=== PATIENT | male | born 1965 | race Caucasian/White ===

== ENCOUNTER 2024-03-09 11:37 | Outpatient (CLI) | payer BC, SELFPAY | END 2024-03-09 11:38 | disposition home or self-care (01) | LOC: AMB 03-13 19:12 | PROVIDERS: Visit Provider Internal Medicine | DX: R42 Dizziness and giddiness (principal) | CPT/HCPCS: A0425; A0427 ==

== ENCOUNTER 2024-03-09 12:09 | Inpatient (IN) | payer BC, SELFPAY ==
[2024-03-09] VITALS (13 sets, daily range): BP systolic 143–164; BP diastolic 91–105; PULSE 95–111; RESP 28–40; TEMP 37.6–39.3; O2SAT 90–93; BMI 37.0; BMI 36.6
--- NOTE | 2024-03-09 12:34 | CT_ITS ---
Patient: WILD PITTMAN Facility:?[facility] Patient ID:?[id number] Site Patient ID:?[id number]. Site :?[id number] Study:?CT-Head w/o-03/09/2024 12:53:55 PM Ordering Physician:Marvin Garcia Final Report: Indication: Dizziness and fever Technique: Volumetric multidetector CT images of the head were obtained without the administration of low osmolar intravenous contrast. Comparison: None available Findings: There is no intra-axial or extra-axial fluid collection. There is no mass effect or midline shift. The ventricles and sulci are normal in size and position for age. The brain parenchyma is grossly preserved in attenuation and gaitan-white differentiation. The orbits and their contents are grossly within normal limits. The bony calvarium is grossly intact. The paranasal sinuses are clear. The mastoid air cells are well aerated. Impression: No acute intracranial abnormality. Please note that all CT scans at this facility use dose modulation, iterative reconstruction, and/or weight-based dosing when appropriate to reduce radiation dose to as low as reasonably achievable. Dictated by Rogelio Wilkinson MD @ 03/09/2024 1:07:08 PM Signed by:?Rogelio Wilkinson MD @03/09/2024 1:07:08 PM (Electronic Signature)
--- NOTE | 2024-03-09 12:41 | ED_ITS ---
HPI - Weakness General Chief complaint: Fever Stated complaint: Dizzy Time Seen by Provider: 03/09/24 12:17 History of Present Illness HPI Narrative: Patient is a a 58-year-old gentleman who was sent over from the urgent care today as he has been sick with dizziness general malaise is fatigue for 2 days. He has not really had any vomiting his cough is nonproductive. His CBC in urgent care which was largely unremarkable. He does have a blood sugar of 351 which he states is not news for him as he is a known diabetic. He has a sodium of 123 with an anion gap of 13. Upon arrival in the emergency room he is noted to be tachycardic and febrile. His respirations are 40 on measurement but much less on my assessment. Patient has no other localizable symptoms his cough is again minimal he has no neurologic symptoms no abdominal pain no rash no skin breakdown. Related Data Home Medications Medication Instructions Recorded Confirmed metoprolol tartrate 50 mg tablet 50 mg PO BID 03/09/24 03/09/24 rosuvastatin 40 mg tablet 40 mg PO DAILY 03/09/24 03/09/24 Allergies Allergy/AdvReac Type Severity Reaction Status Date / Time No Known Drug Allergies Allergy Verified 03/09/24 13:52 Review of Systems Status of ROS: Reports: 10 or more systems reviewed and unremarkable except as noted in History and below PFSH [facility] Medical History Myocardial infarction ?I21.9 - Acute myocardial infarction, unspecified (ICD-10) Surgical History H/O heart artery stent ?Z95.5 - Presence of coronary angioplasty implant and graft (ICD-10) Social History Smoking Status: Current every day smoker What tobacco products do you use: cigarettes Second hand tobacco smoke exposure: No How often do you have a drink containing alcohol: never AUDIT-C Alcohol total score: 0 Non-prescribed substance use: denies use service: No Exam Narrative: Exam Narrative: EXAM GENERAL: Patient appears comfortable and well although his vital signs are all abnormal. EYES: No scleral icterus. LYMPH: No supraclavicular or cervical lymphadenopathy. SKIN: Visible skin seen during exam normal or with benign process only. EXT: No dependent lower extremity pedal edema. HEART: Regular rate and rhythm with no murmurs, rubs, or gallops. Tachycardia noted LUNGS: Rhonchi noted in the right base. ABD: Soft, non tender, non distended. PSYCH: Good eye contact, speech is not pressured. Const: Vital Signs, click to edit/add: Vital Signs - 24 hr 03/09/24 12:18 03/09/24 12:48 Temperature 102.7 F H 102.7 F H Pulse Rate [Pulse Oximeter] 109 H 104 H Respiratory Rate 40 H 36 H Blood Pressure [Le ft Arm] 146/105 H Blood Pressure [Le ft Upper Arm] 143/101 H Pulse Oximetry 90 91 Oxygen Delivery Me thod Room Air Room Air Course Course ED Course: Very concerned about this patient. He meets criteria for sepsis. Blood cultures have been collected will begin aggressive fluid hydration. I did review his laboratory workup at the urgent care and will obtain comprehensive metabolic panel blood cultures x2 lactate. Chest x-ray is suspicious for pneumonia on the left on my review. I will start with the Zosyn plus Zithromax. Vital Signs Vital signs: Initial Vital Signs Temperature 102.7 F H 03/09/24 12:18 Temperature Source Temporal Artery Scan 03/09/24 12:18 Pulse Rate 109 H 03/09/24 12:18 Pulse Rhythm Regular 03/09/24 12:18 Respiratory Rate 40 H 03/09/24 12:18 Blood Pressure 143/101 H 03/09/24 12:18 Blood Pressure Mean 115 H 03/09/24 12:18 Blood Pressure Position Supine 03/09/24 12:18 Pulse Oximetry 90 03/09/24 12:18 Oxygen Delivery Method Room Air 03/09/24 12:18 Vital Signs Temperature 102.7 F H 03/09/24 12:18 Pulse Rate 109 H 03/09/24 12:18 Respiratory Rate 40 H 03/09/24 12:18 Blood Pressure 143/101 H 03/09/24 12:18 Pulse Oximetry 90 03/09/24 12:18 Oxygen Delivery Method Room Air 03/09/24 12:18 Temperature 102.7 F H 03/09/24 12:48 Pulse Rate 104 H 03/09/24 12:48 Respiratory Rate 36 H 03/09/24 12:48 Blood Pressure 146/105 H 03/09/24 12:48 Pulse Oximetry 91 03/09/24 12:48 Oxygen Delivery Method Room Air 03/09/24 12:48 Medications Administered Medications: Discontinued Medications Generic Name Dose Route Start Last Admin Trade Name Freq PRN Reason Stop Dose Admin Sodium Chloride 1,000 mls @ 1,000 mls/hr 03/09/24 12:35 03/09/24 12:50 0.9 % Sodium Chloride 1000 Ml IV 03/09/24 13:34 1,000 mls/hr .Q1H TUNG Administration Piperacillin Sod/Tazobactam 100 mls @ 200 mls/hr 03/09/24 12:51 03/09/24 13:05 Sod 3.375 gm/ Sodium Chloride IVPB 03/09/24 12:52 200 mls/hr ONCE ONE Administration Azithromycin 500 mg/ Sodium 255 mls @ 255 mls/hr 03/09/24 12:51 03/09/24 12:59 Chloride IVPB 03/09/24 12:52 255 mls/hr ONCE ONE Administration MDM - Weakness MDM Narrative Medical decision making narrative: Patient is a 58-year-old gentleman who comes as a transfer from urgent care. He is noted to be hyponatremic and hyperglycemic. Upon arrival he has elevated blood pressure elevated pulse elevated respiratory rate and a fever 102.7. His normal oxygen saturation on room air. He was given hydration and repeat his electrolytes showing a sodium 122. His anion gap still normal. I did do a D- dimer which was positive and did review his chest x-ray from urgent care which I believe shows consolidation on the left. CT of the chest PE protocol shows pulmonary emboli as well as left-sided pneumonia. Upon arrival patient also been given Zosyn and Zithromax cultures have been collected. I have viral testing is negative. At this time patient is being admitted for acute pulmonary embolism after receiving Eliquis 10 mg. He is also admitted for and left-sided pneumonia hyponatremia and hyperglycemia. Lab Data Labs: Lab Results 03/09/24 Range/Units 12:40 D-Dimer Quant (PE/DVT) 2.43 H (0.00-0.50) ug/ml VBG pH 7.434 H (7.32-7.43) VBG pCO2 30 L (40-50) mmHG VBG pO2 35.5 (25-47) mmHG VBG HCO3 20 L (21-28) mmol/L Sodium 122 L* (135-149) mmol/L Potassium 4.3 (3.6-5.1) mmol/L Chloride 91 L (96-114) mmol/L Carbon Dioxide 21 (20-32) mmol/L Anion Gap 10 (7-15) mEq/L BUN 17 (7-30) mg/dL Creatinine 0.9 (0.5-1.5) mg/dL Estimated Creat Clear 95.29 Estimated GFR 99 ml/min Glucose 342 H (60-115) mg/dL Lactate 1.8 (0.5-1.9) mmol/L Calcium 9.1 (8.4-10.6) mg/dL Magnesium 1.8 (1.5-2.6) mg/dL Total Bilirubin 0.9 (0.1-1.5) mg/dL AST 40 H (12-35) U/L ALT 46 (4-50) U/L Alkaline Phosphatase 86 (40-150) U/L Troponin I 0.04 (0.01-0.04) ng/mL Total Protein 7.8 (6.0-8.3) g/dL Albumin 4.3 (3.3-5.0) g/dL SARS-CoV-2 (PCR) Negative SARS-CoV-2 (Negative) Influenza Type A (PCR) Negative PCR FLU A (Negative) Influenza Type B (PCR) Negative PCR FLU B (Negative) RSV (PCR) Negative PCR RSV (Negative) Discharge Plan Discharge Clinical Impression: Pulmonary embolism, Diabetes mellitus, Hyponatremia, Pneumonia Patient Disposition: Admitted As Observation Activity Level: Other Discharge Diet: Other Prescriptions: No Action rosuvastatin 40 mg tablet 40 mg PO DAILY metoprolol tartrate 50 mg tablet 50 mg PO BID Follow Up/Referrals: Provider,Not a Local [Primary Care Provider] -
[2024-03-09] MEDS: 0.9 % SODIUM CHLORIDE 1000 ml 1,000 ML IV (12:50)
[2024-03-09 12:52] LABS: Lactate* 1.8 mmol/L (0.5-1.9)
[2024-03-09] MEDS: AZITHROMYCIN 500 MG in 0.9 % SODIUM CHLORIDE 250 ml 250 ML 255 MG IVPB (12:59)
[2024-03-09] MEDS: PIPERACILLIN/TAZOBACTAM 3.375 GM in 0.9 % SODIUM CHLORIDE Mini-bag 100 ML IVPB ×2 (13:05→18:29)
[2024-03-09 13:11] LABS: Albumin* 4.3 g/dL (3.3-5.0)
[2024-03-09 13:12] LABS: Chloride* 91 mmol/L (96-114); Potassium* 4.3 mmol/L (3.6-5.1)
[2024-03-09 13:14] LABS: Anion Gap 10 mEq/L (7-15); Aspartate Amino Transferase* 40 U/L (12-35); Bilirubin Total* 0.9 mg/dL (0.1-1.5); Carbon Dioxide* 21 mmol/L (20-32); Creatinine* 0.9 mg/dL (0.5-1.5); Est. Creatinine Clearance* 95.29; Estimated Glomerular Filt Rate 99 ml/min
[2024-03-09 13:15] LABS: Alanine Aminotransferase* 46 U/L (4-50); Alkaline Phosphatase* 86 U/L (40-150); Blood Urea Nitrogen* 17 mg/dL (7-30); Calcium* 9.1 mg/dL (8.4-10.6); Glucose* 342 mg/dL (60-115); Total Protein* 7.8 g/dL (6.0-8.3)
[2024-03-09 13:16] LABS: D Dimer Quantitative* 2.43 ug/ml (0.00-0.50); Magnesium* 1.8 mg/dL (1.5-2.6)
[2024-03-09 13:26] LABS: Troponin I* 0.04 ng/mL (0.01-0.04)
[2024-03-09 13:29] LABS: Sodium* 122 mmol/L (135-149)
--- NOTE | 2024-03-09 13:29 | CT_ITS ---
Patient: WILD PITTMAN Facility:?[facility] Patient ID:?[id number] Site Patient ID:?[id number]. Site :?1965 Study:?CT-Chest PE 95CC ISOVUE 370-03/09/2024 1:54:49 PM Ordering Physician:?DR. GARCIA Final Report: Indication: ELEVATED D DIMER. FEVER COUGH Technique: CTA chest, pulmonary embolism protocol utilizing 95 mL Isovue 370 Comparison: None Findings: No thyroid nodules. There are a few prominent mediastinal and left hilar lymph nodes without pathologic enlargement, likely reactive. The heart is normal in size. There is no CT evidence of right heart strain. No pericardial effusion. Coronary artery calcification/stenting. The thoracic aorta and pulmonary artery are normal in caliber. Examination of the pulmonary arteries is limited secondary to contrast bolus timing. There are some arterial filling defects in the segmental arteries of the left lower lobe, concerning for small pulmonary emboli. Diffuse ground-glass opacification involving the left upper lobe with some small regions of more focal consolidation. Subpleural emphysematous changes involving the left upper lobe. No suspicious pulmonary nodules or masses. No pleural effusion or pneumothorax. The airways are clear. The visualized upper abdomen is without acute process. Large simple appearing cyst in the right kidney. The soft tissues and osseous structures are unremarkable. Impression: 1. Examination of the pulmonary arteries is limited secondary to contrast bolus timing. There are some pulmonary arterial filling defects in the segmental arteries of the left lower lobe, which may represent contrast mixing artifact; however, small pulmonary emboli can not be excluded. 2. Diffuse ground-glass opacification involving the left upper lobe with some small regions of more focal consolidation, concerning for an acute infectious/inflammatory process. Findings were discussed with Dr. Garcia by Dr. Roberson at 2:08 p.m. central standard time on 03/09/2024 Please note that all CT scans at this facility use dose modulation, iterative reconstruction, and/or weight-based dosing when appropriate to reduce radiation dose to as low as reasonably achievable. Dictated by Beck Roberson MD @ 03/09/2024 2:09:56 PM Signed by:?Beck Roberson MD @03/09/2024 2:09:56 PM (Electronic Signature)
[2024-03-09 13:38] LABS: PCR FLU A Negative PCR FLU A (Negative); PCR FLU B Negative PCR FLU B (Negative); PCR RSV Negative PCR RSV (Negative); SARS PCR* Negative SARS-CoV-2 (Negative)
[2024-03-09 14:00] LABS: PCO2 VBG 30 mmHG (40-50); PO2 VBG 35.5 mmHG (25-47); pH VBG 7.434 (7.32-7.43)
[2024-03-09 14:01] LABS: HCO3 VBG 20 mmol/L (21-28)
[2024-03-09 14:27] LABS: Procalcitonin* 2.77 ng/mL (<0.50)
[2024-03-09] MEDS: APIXABAN 5 MG TABLET 10 MG PO ×2 (14:45→23:02)
--- NOTE | 2024-03-09 15:08 | PM.IMHP1 ---
Hospitalist- H&P: HPI History of Present Illness Date Seen: 03/09/24 Chief complaint: Dizzy Narrative: Dominic Anthony is a 58 year old male who presented to the ER after being seen in the Urgent Care this morning for a two history of feeling poorly. Primary symptoms include dizziness and weakness. Associated symptoms include polyuria and polydipsia. He's not had any falls or presyncope, no GI symptoms but hasn't felt like eating much recently. No chest pain, no dyspnea, no orthopnea, no PND, no LE edema. He has a history of DM2, doesn't check his Blood Sugar at all; unsure what last A1C was. ER Course and Findings: - BG 342, no AG, no acidosis - Na 122 (126/128 corrected), normal renal function - VS reveal fever, tachycardia, tachypnea, hypertension, hypoxia. Patient notes that he does not feel any SOB with a RR in the 30-40 range - CTA of chest reveals possible small PEs in LLL, ground glass opacification in ENOCH concerning for acute infectious/inflammatory process - treated with IVFs and IV Zosyn - no acute findings on head CT Histories updated below. Had been seeing Dr. Hinson, but given his recent move, looking for a new PCP. He's interested in seeing Dr. Garcia for Primary Care after meeting him in the ER today. Review of Systems Status of ROS: Reports: 10 or more systems reviewed and unremarkable except as noted in History and below [facility] Medical History (Updated 03/09/24 @ 18:18 by Saba Dawson MD) Coronary artery disease ?I25.10 - Atherosclerotic heart disease of [place] coronary artery without angina pectoris (ICD-10) Hyperlipidemia ?E78.5 - Hyperlipidemia, unspecified (ICD-10) Essential hypertension ?I10 - Essential (primary) hypertension (ICD-10) Tobacco user ?Z72.0 - Tobacco use (ICD-10) Diabetes type 2, uncontrolled Myocardial infarction ?I21.9 - Acute myocardial infarction, unspecified (ICD-10) Surgical History (Updated 03/09/24 @ 17:17 by Saba Dawson MD) H/O heart artery stent ?Z95.5 - Presence of coronary angioplasty implant and graft (ICD-10) Social History (Updated 03/09/24 @ 18:15 by Saba Dawson MD) Narrative: Lives alone in [place], ex- Regina Anthony is local and would be MDM if needed. Requests DNR/DNI status. Smokes 1/2-3/4ppd, no ETOH use. 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 What is your current living situation?: I presently have a place to live Smoking Status: Current every day smoker What tobacco products do you use: cigarettes Second hand tobacco smoke exposure: No How often do you have a drink containing alcohol: never AUDIT-C Alcohol total score: 0 Non-prescribed substance use: denies use service: No Meds Home Medications and Allergies Home Medications Medication Instructions Recorded Confirmed Type metoprolol tartrate 50 mg tablet 50 mg PO BID 03/09/24 03/09/24 History rosuvastatin 40 mg tablet 40 mg PO DAILY 03/09/24 03/09/24 History Home Medication Comments: - states taking as prescribed - previously on Metformin, unsure when this was stopped Allergies Allergy/AdvReac Type Severity Reaction Status Date / Time No Known Drug Allergies Allergy Verified 03/09/24 13:52 Exam Narrative: Exam Narrative: GEN: Alert and answering questions appropriately HEENT: EOMIs bilaterally, no scleral icterus CV: Sinus tachycardia without concerning murmurs R: Decreased bibasilar breath sounds, L sided rhonchi, no wheezing. + tachypnea, feels like this is his baseline Ab: protuberant, no ttp Ext: wwp, no concerning edema Skin: No concerning skin lesions or rashes on exposed skin Neuro: No focal deficits, no resting tremor Psych: Flat affect, otherwise appropriate Const: Vital Signs, click to edit/add: Vital Signs - 24 hr 03/09/24 12:18 03/09/24 12:48 03/09/24 14:02 Temperature 102.7 F H 102.7 F H Pulse Rate 108 H Pulse Rate [Pulse Oximeter] 109 H 104 H Respiratory Rate 40 H 36 H 30 H Blood Pressure 145/91 H Blood Pressure [Le ft Arm] 146/105 H Blood Pressure [Le ft Upper Arm] 143/101 H Pulse Oximetry 90 91 92 Oxygen Delivery Me thod Room Air Room Air 03/09/24 14:31 Temperature Pulse Rate 111 H Pulse Rate [Pulse Oximeter] Respiratory Rate 32 H Blood Pressure 164/101 H Blood Pressure [Le ft Arm] Blood Pressure [Le ft Upper Arm] Pulse Oximetry 92 Oxygen Delivery Nm edith Hospitalist - H&P: Result Labs Labs: BMP 03/09/24 12:40 Sodium 122 L* Potassium 4.3 Chloride 91 L Carbon Dioxide 21 BUN 17 Creatinine 0.9 Glucose 342 H Calcium 9.1 Cardiac Enzymes 03/09/24 Range/Units 12:40 Troponin I 0.04 (0.01-0.04) ng/mL Liver Function 03/09/24 Range/Units 12:40 Total Bilirubin 0.9 (0.1-1.5) mg/dL AST 40 H (12-35) U/L ALT 46 (4-50) U/L Alkaline Phosphatase 86 (40-150) U/L Albumin 4.3 (3.3-5.0) g/dL Assessment and Plan Assessment and plan (1) Sepsis: Problem comment: - as evidenced by fever, HR 110s, RR 30-40s - reassuring lactate and WBC - pneumonia likely source, symptoms worsened by uncontrolled DM2 - blood cultures pending, will continue Zosyn (03/09) Status: Acute (2) Pneumonia: Problem comment: - ENOCH, Zosyn (03/09) Status: Acute (3) Hyponatremia: Problem comment: - admission sodium of 122 (corrected:126/128) - follow sodium, anticipate appropriate correction as he is rehydrated and has improved BG control - continue IVFs, deferring fluid restriction at this time Status: Acute (4) Pulmonary embolism: Problem comment: - likely PE on admission imaging - Eliquis initiated 03/09/24, ultrasound BLEs Status: Acute (5) Diabetes type 2, uncontrolled: Problem comment: - on Metformin previously, had this stopped by PCP in the past - A1C on admission 12.4 - Accuchecks, SSI, restart Metformin, Nutrition referral, close outpatient f/u Status: Acute (6) Tobacco user: Problem comment: - last cigarette on 03/06/24 (hasn't been smoking 2/2 illness) - defers nicotine replacement, understands recommendation to quit Status: Acute Plan - per above - Eliquis for ppx - offered to call and update , patient declined (he will let her know of hospital stay)
--- NOTE | 2024-03-09 15:57 | US_ITS ---
Patient: WILD PITTMAN Facility:?[facility] Patient ID:?[id number] Site Patient ID:?[id number] Site :?1965 Study:?US-Extremity bilateral LE Venous-03/09/2024 6:35:24 PM Ordering Physician:?Crystal Simmons Final Report: INDICATION: Possible PE, evaluate for DVT. TECHNIQUE: Ultrasound venous duplex bilateral lower extremity. Compression venous exam was performed using platt-scale, color Doppler, and spectral Doppler analysis. COMPARISON: None. FINDINGS: Deep veins: Sonographic imaging demonstrates the bilateral common femoral, deep femoral, superficial femoral, popliteal, peroneal, and posterior tibial veins to be fully compressible with normal color Doppler blood flow. Superficial veins: Greater saphenous veins are fully compressible. No popliteal cyst. IMPRESSION: No evidence of deep venous thrombosis within the evaluated veins of the bilateral lower extremities. Dictated by Kee Hess MD @ 03/09/2024 7:09:17 PM Signed by:?Kee Hess MD @03/09/2024 7:09:17 PM (Electronic Signature)
[2024-03-09 16:33] LABS: Hemoglobin A1C* 12.4 % (0-5.6)
[2024-03-09 16:59] LABS: HCO3 VBG 23 mmol/L (21-28); Lactate* 1.8 mmol/L (0.5-1.9); PCO2 VBG 36 mmHG (40-50); PO2 VBG 32.9 mmHG (25-47); pH VBG 7.411 (7.32-7.43)
[2024-03-09 17:35] LABS: Anion Gap 10 mEq/L (7-15); Blood Urea Nitrogen* 16 mg/dL (7-30); Carbon Dioxide* 23 mmol/L (20-32); Chloride* 91 mmol/L (96-114); Potassium* 4.1 mmol/L (3.6-5.1); Sodium* 124 mmol/L (135-149)
[2024-03-09 17:36] LABS: Calcium* 8.6 mg/dL (8.4-10.6); Creatinine* 0.9 mg/dL (0.5-1.5); Est. Creatinine Clearance* 95.29; Estimated Glomerular Filt Rate 99 ml/min; Glucose* 314 mg/dL (60-115); Magnesium* 1.9 mg/dL (1.5-2.6)
[2024-03-09] MEDS: METFORMIN 500 MG TABLET PO (18:32)
[2024-03-09] MEDS: INSULIN ASPART 100 UNIT/ML SUBCUT ×2 (18:55→20:47)
--- NOTE | 2024-03-09 19:27 | PC.NURSE ---
End of shift - Pt arrived from ED at approximately 1455. Alert, oriented, cooperative. Able to ambulate from bed to bathroom with standby assistance. Functionally incontinent of bladder, able to use call light appropriately to indicate need for bathroom but unable to move to restroom in time to be continent. RN provided instruction to pt on how to use urinal at bedside, pt verbalized understanding. Pt tolerating RA, regular diet, fluids. Denies pain, SOB, nausea. Reports dizziness when standing, but pt is able to recover appropriately with support. Pt observed to be tachypneic, but pt reports he does not feel that he is experiencing a deviation from his normal breathing pattern. Family at bedside, appears to be resting.
[2024-03-09] MEDS: 0.9 % SODIUM CHLORIDE 1000 ml 1,000 ML 125 ML IV (19:59)
[2024-03-09] MEDS: METOPROLOL TARTRATE 50 MG TABLET PO (20:48)
[2024-03-09] MEDS: ACETAMINOPHEN 325 MG TABLET 975 MG PO (23:00)
[2024-03-10] VITALS (8 sets, daily range): BP systolic 125–161; BP diastolic 69–91; PULSE 90–103; RESP 18–26; TEMP 36.8–37.7; O2SAT 90
[2024-03-10] MEDS: PIPERACILLIN/TAZOBACTAM 3.375 GM in 0.9 % SODIUM CHLORIDE Mini-bag 100 ML IVPB ×4 (00:27→19:17)
--- NOTE | 2024-03-10 06:02 | PC.NURSE ---
Addendum entered by Juan Francisco Maguire RN 03/10/24 07:34: Pt stated he fell while rushing to go to the bathroom due to diarrhea episode at 0330. Pt use call light but could not wait for nurse to get to his room. Attempted to self-transfer to bathroom and slipped from the watery stool on the floor. Pt was sitting on the toilet by the time nurse get to his room. No physical injury was observed. Pt denied pain and discomfort related to the fall. Original Note: Shift note: Pt had diarrhea at 0330. Soiled his bed linens and had BM on the floor. Pt accidentally removed the IV canula in the process of rushing to the bathroom. New Iv inserted. Alert and oriented. Systolic Bp has been above 140 throughout the shift. Pt had fever of 101.8 at 2200. Tylenol given and notified. Temperature dropped to 98.4 at 2300 during reassessment. Ambulated with SBA to and from .
[2024-03-10] MEDS: 0.9 % SODIUM CHLORIDE 1000 ml 1,000 ML 125 ML IV ×3 (06:32→22:46)
[2024-03-10] MEDS: OMEPRAZOLE 20 MG CAPSULE DR 40 MG PO (06:34)
[2024-03-10 06:37] LABS: Basophils Absolute Auto 0.01 K/uL (0.00-0.30); Basophils Percent Auto 0.1 % (0.0-3.0); Hematocrit 41.7 % (37.0-53.0); Hemoglobin* 14.6 gm/dL (13.5-17.5); Immature Granulocytes Abs Auto 0.07 K/uL (0.00-0.30); Immature Granulocytes Pct Auto 0.9 %; Lymphocytes Percent Auto 8.9 % (20-44); Mean Corpuscular HGB Conc 35 gm/dL (32-36); Mean Corpuscular Hemoglobin 28 pg (26-34); Mean Corpuscular Volume 81 fL (80-100); Monocytes Percent Auto 6.1 % (0.0-11.0); Platelet Count* 155 K/uL (140-440); RDW Coefficient of Variation % 12.7 % (11.5-15.5); Red Blood Count 5.18 m/uL (4.30-5.90); White Blood Count* 7.97 K/uL (4.50-11.00)
[2024-03-10 06:43] LABS: Slide Review Reflex No
[2024-03-10 07:00] LABS: Albumin* 3.6 g/dL (3.3-5.0); Chloride* 96 mmol/L (96-114)
[2024-03-10 07:01] LABS: Potassium* 3.9 mmol/L (3.6-5.1); Sodium* 126 mmol/L (135-149)
[2024-03-10 07:03] LABS: Anion Gap 7 mEq/L (7-15); Aspartate Amino Transferase* 60 U/L (12-35); Bilirubin Total* 0.7 mg/dL (0.1-1.5); Carbon Dioxide* 23 mmol/L (20-32); Creatinine* 0.8 mg/dL (0.5-1.5); Estimated Glomerular Filt Rate 103 ml/min; Total Protein* 6.7 g/dL (6.0-8.3)
[2024-03-10 07:04] LABS: Alanine Aminotransferase* 58 U/L (4-50); Alkaline Phosphatase* 75 U/L (40-150); Blood Urea Nitrogen* 16 mg/dL (7-30); Calcium* 8.5 mg/dL (8.4-10.6); Glucose* 259 mg/dL (60-115)
[2024-03-10 07:44] LABS: Lab Add On Test New Spec Needed
[2024-03-10 07:49] LABS: Thyroid Stimulating Hormone* 0.812 uIU/mL (0.270-4.20)
[2024-03-10] MEDS: METOPROLOL TARTRATE 50 MG TABLET PO ×2 (08:34→21:12)
[2024-03-10] MEDS: APIXABAN 5 MG TABLET 10 MG PO ×2 (08:34→21:12)
[2024-03-10] MEDS: INSULIN ASPART 100 UNIT/ML SUBCUT ×4 (08:34→21:13)
[2024-03-10] MEDS: ROSUVASTATIN CALCIUM 10 MG TABLET 40 MG PO (08:34)
[2024-03-10] MEDS: METFORMIN 500 MG TABLET PO ×2 (08:38→19:17)
[2024-03-10 09:04] LABS: C.Difficile Negative (Negative); CDIFFEPI 027 PRESUMPTIVE NEGATIVE (Negative)
--- NOTE | 2024-03-10 09:58 | NUTR.NU ---
ALEXN with MD consult for diabetes teaching. Patient admitted for pneumonia and hyponatremia. Current weight 260 lb; height 5ft 11in; BMI 36.6 kg/m2. A1C 03/09/24 12.4%. Current diet is regular. Meal intake dinner 03/09/24 of 100%. RDN visited with patient whom reports not following a diet at home. He has not received diet education related to diabetes in the past. He reports he lives alone and does not consistently make meals at home. RDN offered diet education related to diabetes to patient, however he refused at this time. He did accepted educational materials and reported he will review on his own time. RDN informed patient he can see RDN in a outpatient setting if he desires education. RDN's contact information was provided and patient was encouraged to call with questions. RDN will continue to monitor.
[2024-03-10 10:26] LABS: Legionella pneumo Ag Urine L. pneumo Negative (Negative); S pneumo Ag Urine S. pneumo Negative (Negative)
--- NOTE | 2024-03-10 14:51 | P.IMPN_ITS ---
Progress Note: A&P Assessment and plan (1) Sepsis: Problem details: - as evidenced by fever, HR 110s, RR 30-40s - clinically improving, vitally stable - reassuring lactate and WBC - pneumonia likely source, symptoms worsened by uncontrolled DM2 - blood cultures NGTD, UC shows no growth, strep pneumo/Legionella negative - continue Zosyn (03/09) Status: Acute (2) Pneumonia: Problem details: - ENOCH, Zosyn (03/09) - Mucinex, Tessalon Perles p.r.n. Status: Acute (3) Hyponatremia: Problem details: - admission sodium of 122 (corrected:126/128) - follow sodium, anticipate appropriate correction as he is rehydrated and has improved BG control - continue IVFs, deferring fluid restriction at this time Status: Acute (4) Pulmonary embolism: Problem details: - likely PE on admission imaging - Eliquis initiated 03/09/24, ultrasound BLEs negative for DVT Status: Acute (5) Diabetes type 2, uncontrolled: Problem details: - on Metformin previously, had this stopped by PCP in the past - A1C on admission 12.4 - Accuchecks, SSI, restart Metformin, Nutrition referral, close outpatient f/u Status: Acute (6) Tobacco user: Problem details: - last cigarette on 03/06/24 (hasn't been smoking 2/2 illness) - defers nicotine replacement, understands recommendation to quit Status: Acute (7) Diarrhea: Problem details: C difficile negative Monitor Status: Acute (8) Cognitive impairment: Problem details: Staff noting patient easily distracted, somewhat disengaged - patient reports this is actually normal for him [place] 19. OT will continue to follow CT head 03/09 unremarkable for acute findings. PCO2 reasonable, sodium adequate Status: Acute Plan Continue IV antibiotic management, monitoring electrolytes, re-evaluating cognitive function, possible discharge 11/09 days if appropriate Time Spent With Patient Total time spent: Total time spent caring for the patient today was 60 minutes. This includes time spent for the visit reviewing the chart, time spent during the visit, time spent after the visit and documentation and planning in coordination of care. Subjective Date Seen: 03/10/24 Interval history: Patient reports feeling better this morning than on arrival. Denies chest pain or shortness of breath. Has remained afebrile. Denies nausea or vomiting, tolerating orals. Has had loose stools prior to arrival and another four since admission. No recent antibiotic use prior to admission. Overnight, reported to fall while walking to bathroom independently. No reported injuries at that time. Continues to deny injuries or concern related to that fall. Did not hit his head. No loss of consciousness reported. Was found on the toilet by staff so able to get up from the floor on his own. Exam Narrative: Exam Narrative: PHYSICAL EXAM General: Pleasant, appropriately conversant, NAD HEENT: Normocephalic, atraumatic, sclera white, EOMI, oral mucosa moist Cardiovascular: RRR, S1S2. No pitting edema Pulmonary: CTA bilaterally without rhonchi, rales, expiratory wheezes. No dyspnea on room air Abdominal: Soft, nondistended, NTTP Neurological: Alert, answering questions appropriately, cranial nerves intact, no focal findings Extremities: No gross joint deformity or swelling. AROMI. Neurovascularly intact Skin: Warm, dry. Const: Vital Signs, click to edit/add: Vital Signs - 24 hr 03/09/24 15:18 03/09/24 17:11 03/09/24 19:00 Temperature 101.7 F H 99.6 F 101.1 F H Pulse Rate Pulse Rate [Pulse Oximeter] 109 H 110 H 106 H Respiratory Rate 32 H 28 H 28 H Blood Pressure [Le ft Arm] 161/104 H 145/92 H Blood Pressure [Le ft Upper Arm] 143/101 H Pulse Oximetry 91 90 Oxygen Delivery Me thod Room Air Room Air 03/09/24 19:07 03/09/24 22:34 03/09/24 22:34 Temperature Pulse Rate Pulse Rate [Pulse Oximeter] 96 Respiratory Rate 28 H 28 H Blood Pressure [Le ft Arm] Blood Pressure [Le ft Upper Arm] Pulse Oximetry 91 91 Oxygen Delivery Me thod Room Air Room Air 03/09/24 22:34 03/09/24 23:00 03/09/24 23:00 Temperature 101.8 F H 101.8 F H Pulse Rate 95 Pulse Rate [Pulse Oximeter] 96 Respiratory Rate 28 H Blood Pressure [Le ft Arm] 147/97 H Blood Pressure [Le ft Upper Arm] Pulse Oximetry 90 Oxygen Delivery Me thod Room Air 03/10/24 00:28 03/10/24 03:00 03/10/24 08:01 Temperature 98.4 F 99.9 F H Pulse Rate 103 H Pulse Rate [Pulse Oximeter] 92 Respiratory Rate 26 H Blood Pressure [Le ft Arm] 161/91 H Blood Pressure [Le ft Upper Arm] Pulse Oximetry 90 Oxygen Delivery Me thod Room Air 03/10/24 08:04 03/10/24 08:04 03/10/24 13:07 Temperature 98.2 F 99.4 F Pulse Rate Pulse Rate [Pulse Oximeter] 102 H 92 Respiratory Rate 18 18 20 Blood Pressure [Le ft Arm] 140/86 H 125/84 Blood Pressure [Le ft Upper Arm] Pulse Oximetry 90 90 90 Oxygen Delivery Me thod Room Air Room Air Room Air Labs Labs: Laboratory Results - last 24 hr 03/09/24 03/09/24 03/09/24 12:40 15:04 16:55 WBC RBC Hgb Hct MCV MCH MCHC RDW Coeff of Lorne Plt Count Neut % (Auto) Lymph % (Auto) [place] % (Auto) Eos % (Auto) Baso % (Auto) Neut # (Auto) Lymph # (Auto) [place] # (Auto) Eos # (Auto) Baso # (Auto) Abs Immat Gran (auto) Imm/Tot Granulo (auto) VBG pH 7.411 VBG pCO2 36 L VBG pO2 32.9 VBG HCO3 23 Sodium 124 L* Potassium 4.1 Chloride 91 L Carbon Dioxide 23 Anion Gap 10 BUN 16 Creatinine 0.9 Estimated Creat Clear 95.29 Estimated GFR 99 Glucose 314 H Hemoglobin A1c 12.4 H Lactate 1.8 Calcium 8.6 Magnesium 1.9 Total Bilirubin AST ALT Alkaline Phosphatase Total Protein Albumin TSH Urine L. pneumophilia Ag Urine Strep pneumoniae Ag Stl C. diff Tox B Gene Stl C. diff 027-NAP1-BI Lab Acknowledgement Test Added 03/10/24 03/10/24 03/10/24 06:25 07:35 08:05 WBC 7.97 RBC 5.18 Hgb 14.6 Hct 41.7 MCV 81 MCH 28 MCHC 35 RDW Coeff of Lorne 12.7 Plt Count 155 Neut % (Auto) 84.0 H Lymph % (Auto) 8.9 L [place] % (Auto) 6.1 Eos % (Auto) 0.0 Baso % (Auto) 0.1 Neut # (Auto) 6.70 Lymph # (Auto) 0.70 L [place] # (Auto) 0.50 Eos # (Auto) 0.00 Baso # (Auto) 0.01 Abs Immat Gran (auto) 0.07 Imm/Tot Granulo (auto) 0.9 VBG pH VBG pCO2 VBG pO2 VBG HCO3 Sodium 126 L Potassium 3.9 Chloride 96 Carbon Dioxide 23 Anion Gap 7 BUN 16 Creatinine 0.8 Estimated Creat Clear 107.20 Estimated GFR 103 Glucose 259 H Hemoglobin A1c Lactate Calcium 8.5 Magnesium Total Bilirubin 0.7 AST 60 H ALT 58 H Alkaline Phosphatase 75 Total Protein 6.7 Albumin 3.6 TSH 0.812 Urine L. pneumophilia Ag Urine Strep pneumoniae Ag Stl C. diff Tox B Gene Negative Stl C. diff [id number]-[id number] PRESUMPTIVE NEGATIVE Lab Acknowledgement New Spec Needed 03/10/24 09:48 WBC RBC Hgb Hct MCV MCH MCHC RDW Coeff of [place]orne Plt Count Neut % (Auto) Lymph % (Auto) [place] % (Auto) Eos % (Auto) Baso % (Auto) Neut # (Auto) Lymph # (Auto) [place] # (Auto) Eos # (Auto) Baso # (Auto) Abs Immat Gran (auto) Imm/Tot Granulo (auto) VBG pH VBG pCO2 VBG pO2 VBG HCO3 Sodium Potassium Chloride Carbon Dioxide Anion Gap BUN Creatinine Estimated Creat Clear Estimated GFR Glucose Hemoglobin A1c Lactate Calcium Magnesium Total Bilirubin AST ALT Alkaline Phosphatase Total Protein Albumin TSH Urine L. pneumophilia Ag L. pneumo Negative Urine Strep pneumoniae Ag S. pneumo Negative Stl C. diff Tox B Gene Stl C. diff [id number] Lab Acknowledgement
[2024-03-10] MEDS: guaiFENesin 600 MG TAB.ER.12H PO (21:12)
[2024-03-11] VITALS (9 sets, daily range): BP systolic 102–154; BP diastolic 68–97; PULSE 75–91; RESP 16–20; TEMP 36.6–38.1; O2SAT 90–93
[2024-03-11] MEDS: PIPERACILLIN/TAZOBACTAM 3.375 GM in 0.9 % SODIUM CHLORIDE Mini-bag 100 ML IVPB ×4 (00:53→17:59)
[2024-03-11] MEDS: ACETAMINOPHEN 325 MG TABLET 975 MG PO ×2 (01:01→06:58)
[2024-03-11 06:41] LABS: Hematocrit 39.8 % (37.0-53.0); Hemoglobin* 13.8 gm/dL (13.5-17.5); Mean Corpuscular HGB Conc 35 gm/dL (32-36); Mean Corpuscular Hemoglobin 28 pg (26-34); Mean Corpuscular Volume 81 fL (80-100); Platelet Count* 144 K/uL (140-440); Red Blood Count 4.89 m/uL (4.30-5.90); White Blood Count* 6.44 K/uL (4.50-11.00)
[2024-03-11] MEDS: OMEPRAZOLE 20 MG CAPSULE DR 40 MG PO (06:53)
[2024-03-11 06:55] LABS: Albumin* 3.1 g/dL (3.3-5.0); Chloride* 98 mmol/L (96-114); Sodium* 129 mmol/L (135-149)
[2024-03-11 06:56] LABS: Potassium* 3.5 mmol/L (3.6-5.1)
[2024-03-11 06:58] LABS: Alanine Aminotransferase* 155 U/L (4-50); Alkaline Phosphatase* 79 U/L (40-150); Anion Gap 5 mEq/L (7-15); Aspartate Amino Transferase* 207 U/L (12-35); Bilirubin Direct* 0.2 mg/dL (0.0-0.5); Bilirubin Total* 0.6 mg/dL (0.1-1.5); Blood Urea Nitrogen* 14 mg/dL (7-30); Carbon Dioxide* 26 mmol/L (20-32); Creatinine* 0.8 mg/dL (0.5-1.5); Estimated Glomerular Filt Rate 103 ml/min; Glucose* 211 mg/dL (60-115); Total Protein* 6.1 g/dL (6.0-8.3)
[2024-03-11 06:59] LABS: Calcium* 8.3 mg/dL (8.4-10.6)
[2024-03-11 07:20] LABS: Slide Review Reflex No
--- NOTE | 2024-03-11 07:37 | PC.NURSE ---
Pt alert and oriented x3.? Pt had elevated temp of 100.5, PRN Tylenol given with relief temperature retaken 98.0 F.?Pt reports 4/10 headache, managed with PRN Tylenol. Pt denies chest pain, and N/V. SOB is noted with exertion.? Pt is up SBA with IV pole. Pt is voiding, passing gas, and had one small loose stool. Pt slept throughout most of night.
--- NOTE | 2024-03-11 07:53 | PM.IMPN1 ---
Progress Note: A&P Assessment and plan (1) Sepsis: Problem details: - as evidenced by fever, HR 110s, RR 30-40s - clinically improving, vitally stable - reassuring lactate and WBC - pneumonia likely source, symptoms worsened by uncontrolled DM2 - blood cultures NGTD, UC shows no growth, strep pneumo/Legionella negative - continue Zosyn (03/09) Status: Acute (2) Pneumonia: Problem details: - ENOCH - continue Zosyn (03/09), plan to transition to oral on discharge, pending ongoing clinical improvement, fever free - Mucinex, Tessalon Perles p.r.n. Status: Acute (3) Hyponatremia: Problem details: - sodium 129, admission sodium of 122 - follow sodium, anticipate appropriate correction as he is rehydrated and has improved BG control - continue IVFs for now given ongoing fever, deferring fluid restriction at this time Status: Acute (4) Pulmonary embolism: Problem details: - likely PE on admission imaging - Eliquis initiated 03/09/24, ultrasound BLEs negative for DVT Status: Acute (5) Diabetes type 2, uncontrolled: Problem details: - on Metformin previously, had this stopped by PCP in the past - A1C on admission 12.4 - Accuchecks, SSI, restart Metformin, Nutrition referral, close outpatient f/u Status: Acute (6) Tobacco user: Problem details: - last cigarette on 03/06/24 (hasn't been smoking 2/2 illness) - defers nicotine replacement, understands recommendation to quit Status: Acute (7) Diarrhea: Problem details: C difficile negative Monitor Status: Acute (8) Cognitive impairment: Problem details: Staff noting patient easily distracted, somewhat disengaged - patient reports this is actually normal for him [place] 19. OT will continue to follow CT head 03/09 unremarkable for acute findings. PCO2 reasonable, sodium adequate 03/11 - noted to be improving Status: Acute (9) Abnormal liver enzymes: Problem details: AST 207 - 60 - 40 ALT 155- 58 - 46 Ultrasound ordered for tomorrow morning, NPO after midnight Status: Acute Time Spent With Patient Total time spent: Total time spent caring for the patient today was 45 minutes. This includes time spent for the visit reviewing the chart, time spent during the visit, time spent after the visit and documentation and planning in coordination of care. Subjective Date Seen: 03/11/24 Interval history: Patient reports feeling better this morning, continuing to improve. Tolerating orals without nausea vomiting. Did have a fever overnight, 100.5?. Currently sweating, which he tells me is normal for him on a daily basis. Temp this morning is 98?. Fever at midnight No new leukocytosis BC x2 negative, UC negative, strep pneumo/Legionella negative Sodium slowly improving, mild hypokalemia AST/ALT trending up Exam Narrative: Exam Narrative: PHYSICAL EXAM General: Pleasant, appropriately conversant, NAD HEENT: Normocephalic, atraumatic, sclera white, EOMI, oral mucosa moist, sweat beads over neck Cardiovascular: RRR, S1S2. No pitting edema Pulmonary: CTA bilaterally without rhonchi, rales, expiratory wheezes. No dyspnea on room air Abdomen: Soft, nondistended, nontender to palpation Neurological: Alert, answering questions appropriately, cranial nerves intact, no focal findings Extremities: No gross joint deformity or swelling. AROMI. Neurovascularly intact Skin: Warm, dry. Const: Vital Signs, click to edit/add: Vital Signs - 24 hr 03/10/24 08:01 03/10/24 08:04 03/10/24 08:04 Temperature 98.2 F Pulse Rate 103 H Pulse Rate [Pulse Oximeter] 102 H Respiratory Rate 18 18 Blood Pressure [Le ft Arm] 140/86 H Pulse Oximetry 90 [facility] 03/10/24 13:07 03/10/24 15:00 03/10/24 15:00 Temperature 99.4 F 98.8 F Pulse Rate Pulse Rate [Pulse Oximeter] 92 90 Respiratory Rate 20 18 18 Blood Pressure [Le ft Arm] 125/84 144/88 H Pulse Oximetry 90 90 90 Oxygen Delivery Md thod Room Air Room Air Room Air 03/10/24 15:00 03/10/24 20:01 03/10/24 21:10 Temperature 99.9 F H 99.1 F Pulse Rate 96 Pulse Rate [Pulse Oximeter] 98 97 Respiratory Rate 20 20 Blood Pressure [Le ft Arm] 129/69 137/84 Pulse Oximetry 90 90 [facility] 03/10/24 21:10 03/10/24 21:10 03/10/24 21:10 Temperature Pulse Rate 97 Pulse Rate [Pulse Oximeter] Respiratory Rate 20 20 Blood Pressure [Le ft Arm] Pulse Oximetry 90 Oxygen Delivery Me thod Room Air 03/11/24 00:56 03/11/24 01:01 03/11/24 06:54 Temperature 100.5 F H 100.5 F H 98.0 F Pulse Rate Pulse Rate [Pulse Oximeter] 91 Respiratory Rate 20 Blood Pressure [Le ft Arm] 107/68 Pulse Oximetry 90 Oxygen Delivery Me thod Room Air Labs Labs: Laboratory Results - last 24 hr 03/10/24 03/10/24 03/10/24 06:25 08:05 09:48 WBC RBC Hgb Hct MCV MCH MCHC Plt Count Sodium Potassium Chloride Carbon Dioxide Anion Gap BUN Creatinine Estimated Creat Clear Estimated GFR Glucose Calcium Total Bilirubin Direct Bilirubin AST ALT Alkaline Phosphatase Total Protein Albumin TSH 0.812 Urine L. pneumophilia Ag L. pneumo Negative Urine Strep pneumoniae Ag S. pneumo Negative Stl C. diff Tox B Gene Negative Stl C. diff [id number] PRESUMPTIVE NEGATIVE 03/11/24 06:15 WBC 6.44 RBC 4.89 Hgb 13.8 Hct 39.8 MCV 81 MCH 28 MCHC 35 Plt Count 144 Sodium 129 L Potassium 3.5 L Chloride 98 Carbon Dioxide 26 Anion Gap 5 L BUN 14 Creatinine 0.8 Estimated Creat Clear 107.20 Estimated GFR 103 Glucose 211 H Calcium 8.3 L Total Bilirubin 0.6 Direct Bilirubin 0.2 AST 207 H ALT 155 H Alkaline Phosphatase 79 Total Protein 6.1 Albumin 3.1 L TSH Urine L. pneumophilia Ag Urine Strep pneumoniae Ag Stl C. diff Tox B Gene Stl C. diff [id number]
[2024-03-11] MEDS: METFORMIN 500 MG TABLET PO ×2 (08:51→17:03)
[2024-03-11] MEDS: ROSUVASTATIN CALCIUM 10 MG TABLET 40 MG PO (08:51)
[2024-03-11] MEDS: METOPROLOL TARTRATE 50 MG TABLET PO ×2 (08:51→21:39)
[2024-03-11] MEDS: POTASSIUM CHLORIDE 10 MEQ CAPSULE ER 40 MEQ PO (08:51)
[2024-03-11] MEDS: guaiFENesin 600 MG TAB.ER.12H PO ×2 (08:51→21:40)
[2024-03-11] MEDS: APIXABAN 5 MG TABLET 10 MG PO ×2 (08:51→21:39)
[2024-03-11] MEDS: 0.9 % SODIUM CHLORIDE 1000 ml 1,000 ML 75 ML IV ×2 (08:52→21:49)
[2024-03-11] MEDS: INSULIN ASPART 100 UNIT/ML SUBCUT ×4 (08:53→21:40)
[2024-03-11] MEDS: SODIUM CHLORIDE 0.9 % (FLUSH) 10 ML SYRINGE 5 ML IVF (21:40)
[2024-03-11] MEDS: ACETAMINOPHEN 500 MG TABLET PO (21:56)
[2024-03-12] MEDS: PIPERACILLIN/TAZOBACTAM 3.375 GM in 0.9 % SODIUM CHLORIDE Mini-bag 100 ML IVPB ×2 (01:16→06:51)
[2024-03-12 01:20] VITALS: BP 121/78; PULSE 65; RESP 18; TEMP 36.4; O2SAT 93
[2024-03-12] MEDS: OMEPRAZOLE 20 MG CAPSULE DR 40 MG PO (05:49)
--- NOTE | 2024-03-12 06:16 | PC.NURSE ---
Pt alert and oriented x3.?Afebrile.?Pt reports 5/10 headache, managed with PRN Tylenol. Pt denies chest pain, SOB and N/V. Pt is up SBA with IV pole. Pt is voiding, passing gas, and had x2 loose stools. Pt had shower before bed, bed sheets changed. Pt has been NPO since 0000, tolerating well.
[2024-03-12 06:21] LABS: Hematocrit 40.3 % (37.0-53.0); Hemoglobin* 13.8 gm/dL (13.5-17.5); Mean Corpuscular HGB Conc 34 gm/dL (32-36); Mean Corpuscular Hemoglobin 28 pg (26-34); Mean Corpuscular Volume 81 fL (80-100); Platelet Count* 154 K/uL (140-440); Red Blood Count 4.97 m/uL (4.30-5.90); White Blood Count* 5.06 K/uL (4.50-11.00)
[2024-03-12 06:35] LABS: Slide Review Reflex No
--- NOTE | 2024-03-12 07:00 | US_ITS ---
Patient: WILD PITTMAN Facility:?[facility] RIS Patient ID:?[id number] Site Patient ID:?[id number]. Site :?[id number] Study:?US-Abdomen RUQ-03/12/2024 8:15:45 AM Ordering Physician:Kianna Sutherland PA-C Final Report: INDICATION: COMPARISON: None available. TECHNIQUE: Right upper quadrant grayscale and limited color Doppler ultrasound. FINDINGS: Liver: Diffusely heterogeneous echotexture consistent with hepatic steatosis with focal sparing adjacent to the mercedes hepatis. Incompletely characterized mixed echotexture solid lesion in the medial segment of left hepatic lobe measuring 3.3 x 1.9 x 2.5 cm. No intrahepatic biliary ductal dilatation. Smooth contour. Normal hepatopedal portal venous blood flow. Gallbladder: Nondistended. Free of stones or significant sludge. Normal wall thickness. Negative sonographic Dickinson sign. CBD: 5mm Pancreas: Normal where visualized. The pancreas is partially obscured and therefore incompletely evaluated. Right Kidney: Measures 14.4 cm in craniocaudal length. Normal echotexture. No hydronephrosis. No convincing sonographic evidence of nephrolithiasis. Incidental benign anechoic unilocular 4.6 cm right upper pole renal cortical cyst. Midline Vasculature: Visualized aorta and cava are without significant findings. Peritoneal Cavity: No significant ascites. Additional Findings: None. IMPRESSION: 1. Incompletely characterized focal hepatic lesion measuring 3.3 cm in greatest dimension located in the medial segment of the left hepatic lobe. MRI is recommended for further characterization which can be performed any nonacute care setting. 2. Diffuse hepatic steatosis. Recommendation: MRI of the liver, without and with intravenous contrast. Dictated by Alli Bailey MD @ 03/12/2024 11:15:01 AM Signed by:?Alli Bailey MD @03/12/2024 11:15:01 AM (Electronic Signature)
[2024-03-12 07:01] LABS: Blood Urea Nitrogen* 12 mg/dL (7-30); Calcium* 8.5 mg/dL (8.4-10.6); Carbon Dioxide* 25 mmol/L (20-32); Creatinine* 0.6 mg/dL (0.5-1.5); Est. Creatinine Clearance* 142.93; Estimated Glomerular Filt Rate 112 ml/min; Glucose* 224 mg/dL (60-115)
[2024-03-12 07:38] LABS: Anion Gap 5 mEq/L (7-15); Chloride* 104 mmol/L (96-114); Potassium* 3.5 mmol/L (3.6-5.1); Sodium* 134 mmol/L (135-149)
[2024-03-12 07:58] VITALS: BP 131/94; PULSE 68; RESP 20; TEMP 36.7; O2SAT 91
[2024-03-12 08:14] LABS: Albumin* 3.1 g/dL (3.3-5.0)
[2024-03-12 08:17] LABS: Alanine Aminotransferase* 330 U/L (4-50); Alkaline Phosphatase* 124 U/L (40-150); Aspartate Amino Transferase* 335 U/L (12-35); Bilirubin Direct* 0.1 mg/dL (0.0-0.5); Bilirubin Total* 0.5 mg/dL (0.1-1.5); Total Protein* 5.9 g/dL (6.0-8.3)
[2024-03-12] MEDS: INSULIN ASPART 100 UNIT/ML SUBCUT ×2 (08:39→11:20)
[2024-03-12] MEDS: APIXABAN 5 MG TABLET 10 MG PO (08:40)
[2024-03-12] MEDS: METOPROLOL TARTRATE 50 MG TABLET PO (08:41)
[2024-03-12] MEDS: METFORMIN 500 MG TABLET PO (08:41)
[2024-03-12] MEDS: guaiFENesin 600 MG TAB.ER.12H PO (08:41)
[2024-03-12 11:00] VITALS: BP 115/82; PULSE 68; RESP 18; TEMP 36.6; O2SAT 91
--- NOTE | 2024-03-12 13:34 | PC.NURSE ---
Pt alert and oriented. Pt had no complaints of pain. Pt had no SOB and is on RA. Pt independent in room. Pt?s IV removed; catheter intact. Discharge education completed with Pt. Pt discharged home.?
--- NOTE | 2024-03-12 13:36 | PM.DS1 ---
DS: Providers Provider Date Seen: 03/12/24 Date of admission: 03/09/24 15:44 Primary care physician: Not a Local Provider Admitting Clinician: Crystal Simmons MD Consults: 03/09/24 15:44 Consult to Respiratory Therapy [CONS] Routine Comment: Reason(s) for RT Consult:: Consult 03/09/24 15:54 Consult to Nutrition [CONS] Routine Comment: Reason for consult:: Diabetic Teaching Consult to Physical Therapy [CONS] Routine Comment: Reason(s) for PT Consult:: Evaluate and Treat Any Restrictions?:: No Restrictions 03/09/24 15:55 Consult to Occupational Therapy [CONS] Routine Comment: Reason(s) for OT Consult:: Evaluate and Treat Any Restrictions?:: No Restrictions Attending Physician on discharge: ANAIS Padilla, RUBÉN [facility] Date of Discharge: 03/12/24 DS: Diagnosis Discharge Diagnosis (1) Sepsis: Status: Resolved Problem details: Resolved On admission fever, HR 110s, RR 30-40s. No leukocytosis, lactate reassuring. Pneumonia as expected source, worsened by uncontrolled DM2. Blood cultures NGTD, UC shows no growth, strep pneumo/Legionella negative. Patient was started on IV Zosyn, transitioned to oral Augmentin at time of discharge. (2) Pneumonia: Status: Acute Problem details: CT shows diffuse ground-glass opacities involving the left upper lobe with some small regions of more focal consolidation. Strep pneumo/Legionella negative. Patient initiated on Zosyn, transition to oral Augmentin on discharge to complete a 10 day course of antibiotic therapy. Continue Mucinex twice daily. (3) Hyponatremia: Status: Acute Problem details: Sodium on admission 122, gradually improving to 134 prior to discharge. Outpatient follow-up with PCP. (4) Pulmonary embolism: Status: Acute Problem details: Suspected on CT, limited to contrast bolus timing, seen are some pulmonary arterial filling defects in the segmental arteries of the left lower lobe, small pulmonary emboli cannot be excluded. Patient started on Eliquis 03/09/24 and will follow-up with PCP for ongoing anticoagulation recommendations. Ultrasound BLEs negative for DVT (5) Diabetes type 2, uncontrolled: Status: Acute Problem details: Non compliant with diabetes management. Has not been taking metformin as previously prescribed. Does not endorse a diabetic healthy diet. Has never checked his blood sugars at home. A1C on admission 12.4. Patient was restarted on metformin twice daily. Insulin sliding scale was utilized during hospital course. Nutrition was consulted. On discharge, patient is recommended to continue metformin twice daily. He will have follow-up in the clinic in 2 days at which time patient and PCP can decide further medication management including possible need for insulin which would require self glucose checks. Concern for compliance in all facets including medication, glucose checks, diet, exercise, lifestyle choices. (6) Tobacco user: Status: Acute Problem details: - last cigarette on 03/06/24 (hasn't been smoking 2/2 illness) - defers nicotine replacement, understands recommendation to quit (7) Diarrhea: Status: Resolved Problem details: C difficile negative (8) Cognitive impairment: Status: Acute Problem details: Staff noting patient easily distracted, somewhat disengaged - patient reports this is actually normal for him. OT consulted, Prentiss 19, suspect this would actually improve as hospital course progresses. CT head 03/09 unremarkable for acute findings. PCO2 reasonable, sodium adequate Cognition noted to improved. Remained rather dependent upon staff, commenting he does not want to discharge as he prefers being taking care of here. Has not shown motivation to independently complete ADLs, get dressed, ambulate. Specifically asks why would he want to leave when he has pretty women here taking care of me. Would recommend outpatient follow-up with PCP for further cognitive testing as necessary. (9) Abnormal liver enzymes: Status: Acute Problem details: AST an ALT noted to trend up. Ultrasound shows incompletely characterized focal hepatic lesion measuring 3.3 cm in greatest dimension located in the medial segment of the left hepatic lobe. An outpatient MRI is recommended for further characterization. Diffuse hepatic steatosis noted. Acute hepatic panel ordered, pending at time of discharge - follow-up with PCP. Rosuvastatin held - to be resume by PCP when appropriate. No recent Tylenol use. Other medications with minor potential toxicity risk. Outpatient follow-up in clinic with PCP in 2 days for further workup and recommendations. Consider GI consult. DS: Summary Hospital Course Hospital Course: [age] year old male past medical history significant for uncontrolled diabetes mellitus 2, hypertension, hyperlipidemia was admitted to the medical floor for management sepsis in suspected community-acquired pneumonia. Course of care and details as noted above. Sepsis resolved. Continuing antibiotic for a acquired pneumonia. Pulmonary embolism suspected, continued on anticoagulation to be managed by PCP. Poorly controlled diabetes mellitus, noncompliant with medications, diet, lifestyle choices. Close outpatient follow-up with PCP for ongoing management. Elevated LFTs, hepatic steatosis, hepatic lesion. Close outpatient follow-up with PCP for further workup. Hyponatremia improving, PCP follow-up. Remainder of chronic medical comorbidities were monitored and managed with home medications. Status at Discharge Functional status at discharge: independent ambulation Overall status at discharge: patient is not back to baseline Time Spent with Patient Time attestation: Total time spent providing and/or coordinating discharge services: Time spent: Greater than 30 minutes Exam Narrative: Exam Narrative: PHYSICAL EXAM General: Pleasant, conversant, NAD Cardiovascular: RRR Pulmonary: No dyspnea Neurological: Alert, answering questions appropriately Skin: Warm, dry. Const: Vital Signs, click to edit/add: Vital Signs - 24 hr 03/11/24 16:12 03/11/24 16:12 03/11/24 19:55 Temperature 98.7 F 98.7 F Pulse Rate [Pulse Oximeter] 83 83 Respiratory Rate 18 18 18 Blood Pressure [Le ft Arm] 130/86 118/68 Pulse Oximetry 92 92 91 Oxygen Delivery Me thod Room Air Room Air Room Air Oxygen Flow Rate 03/11/24 21:37 03/11/24 22:55 03/11/24 22:55 Temperature 98.5 F Pulse Rate [Pulse Oximeter] 84 Respiratory Rate 18 18 18 Blood Pressure [Le ft Arm] 154/97 H Pulse Oximetry 92 92 Oxygen Delivery Me thod Room Air Room Air Oxygen Flow Rate 03/12/24 01:20 03/12/24 07:58 03/12/24 07:58 Temperature 97.5 F L 98.0 F Pulse Rate [Pulse Oximeter] 65 68 Respiratory Rate 18 20 20 Blood Pressure [Le ft Arm] 121/78 131/94 H Pulse Oximetry 93 91 91 Oxygen Delivery Me thod Room Air Room Air Room Air Oxygen Flow Rate 0 03/12/24 07:58 03/12/24 11:00 Temperature 97.8 F Pulse Rate [Pulse Oximeter] 68 Respiratory Rate 20 18 Blood Pressure [Le ft Arm] 115/82 Pulse Oximetry 91 Oxygen Delivery Me thod Room Air Oxygen Flow Rate DS: Data Data Completed and Pending Pending studies at discharge: Acute hepatic panel Labs on day of discharge: Labs from last 24 hours 03/12/24 03/12/24 03/12/24 10:12 07:21 05:50 WBC 5.06 RBC 4.97 Hgb 13.8 Hct 40.3 MCV 81 MCH 28 MCHC 34 Plt Count 154 Sodium 134 L Potassium 3.5 L Chloride 104 Carbon Dioxide 25 Anion Gap 5 L BUN 12 Creatinine 0.6 Estimated Creat Clear 142.93 Estimated GFR 112 Glucose 224 H Calcium 8.5 Total Bilirubin 0.5 Direct Bilirubin 0.1 AST 335 H ALT 330 H Alkaline Phosphatase 124 Total Protein 5.9 L Albumin 3.1 L Hepatitis A IgM Ab Pending Hep Bs Antigen Pending Hep B Core IgM Ab Pending Hep C Ab Index (ELZBIETA) Pending Hep C Ab Interp ELZBIETA Pending Hepatitis Interpret Pending Lab Acknowledgement Test Added Test Added Preliminary micro results at discharge 03/09/24 12:40 Blood Culture - Preliminary Blood NO GROWTH AFTER 72 HOURS 03/09/24 12:40 Blood Culture - Preliminary Blood NO GROWTH AFTER 72 HOURS Imaging US - abdomen: Attestation: I have reviewed the pertinent imaging results. Radiologist's impression: Right upper quadrant grayscale and limited color Doppler ultrasound. FINDINGS: Liver: Diffusely heterogeneous echotexture consistent with hepatic steatosis with focal sparing adjacent to the mercedes hepatis. Incompletely characterized mixed echotexture solid lesion in the medial segment of left hepatic lobe measuring 3.3 x 1.9 x 2.5 cm. No intrahepatic biliary ductal dilatation. Smooth contour. Normal hepatopedal portal venous blood flow. Gallbladder: Nondistended. Free of stones or significant sludge. Normal wall thickness. Negative sonographic Dickinson sign. CBD: 5mm Pancreas: Normal where visualized. The pancreas is partially obscured and therefore incompletely evaluated. Right Kidney: Measures 14.4 cm in craniocaudal length. Normal echotexture. No hydronephrosis. No convincing sonographic evidence of nephrolithiasis. Incidental benign anechoic unilocular 4.6 cm right upper pole renal cortical cyst. Midline Vasculature: Visualized aorta and cava are without significant findings. Peritoneal Cavity: No significant ascites. Additional Findings: None. IMPRESSION: 1. Incompletely characterized focal hepatic lesion measuring 3.3 cm in greatest dimension located in the medial segment of the left hepatic lobe. MRI is recommended for further characterization which can be performed any nonacute care setting. 2. Diffuse hepatic steatosis. Recommendation: MRI of the liver, without and with intravenous contrast. Venous US: Attestation: I have reviewed the pertinent imaging results. Radiologist's impression: Right upper quadrant grayscale and limited color Doppler ultrasound. FINDINGS: Liver: Diffusely heterogeneous echotexture consistent with hepatic steatosis with focal sparing adjacent to the mercedes hepatis. Incompletely characterized mixed echotexture solid lesion in the medial segment of left hepatic lobe measuring 3.3 x 1.9 x 2.5 cm. No intrahepatic biliary ductal dilatation. Smooth contour. Normal hepatopedal portal venous blood flow. Gallbladder: Nondistended. Free of stones or significant sludge. Normal wall thickness. Negative sonographic Dickinson sign. CBD: 5mm Pancreas: Normal where visualized. The pancreas is partially obscured and therefore incompletely evaluated. Right Kidney: Measures 14.4 cm in craniocaudal length. Normal echotexture. No hydronephrosis. No convincing sonographic evidence of nephrolithiasis. Incidental benign anechoic unilocular 4.6 cm right upper pole renal cortical cyst. Midline Vasculature: Visualized aorta and cava are without significant findings. Peritoneal Cavity: No significant ascites. Additional Findings: None. IMPRESSION: 1. Incompletely characterized focal hepatic lesion measuring 3.3 cm in greatest dimension located in the medial segment of the left hepatic lobe. MRI is recommended for further characterization which can be performed any nonacute care setting. 2. Diffuse hepatic steatosis. Recommendation: MRI of the liver, without and with intravenous contrast. CT scan - chest: Attestation: I have reviewed the pertinent imaging results. Radiologist's impression: CTA chest, pulmonary embolism protocol utilizing 95 mL Isovue 370 Comparison: None Findings: No thyroid nodules. There are a few prominent mediastinal and left hilar lymph nodes without pathologic enlargement, likely reactive. The heart is normal in size. There is no CT evidence of right heart strain. No pericardial effusion. Coronary artery calcification/stenting. The thoracic aorta and pulmonary artery are normal in caliber. Examination of the pulmonary arteries is limited secondary to contrast bolus timing. There are some arterial filling defects in the segmental arteries of the left lower lobe, concerning for small pulmonary emboli. Diffuse ground-glass opacification involving the left upper lobe with some small regions of more focal consolidation. Subpleural emphysematous changes involving the left upper lobe. No suspicious pulmonary nodules or masses. No pleural effusion or pneumothorax. The airways are clear. The visualized upper abdomen is without acute process. Large simple appearing cyst in the right kidney. The soft tissues and osseous structures are unremarkable. Impression: 1. Examination of the pulmonary arteries is limited secondary to contrast bolus timing. There are some pulmonary arterial filling defects in the segmental arteries of the left lower lobe, which may represent contrast mixing artifact; however, small pulmonary emboli can not be excluded. 2. Diffuse ground-glass opacification involving the left upper lobe with some small regions of more focal consolidation, concerning for an acute infectious/inflammatory process. CT scan - head: Attestation: I have reviewed the pertinent imaging results. Radiologist's impression: Volumetric multidetector CT images of the head were obtained without the administration of low osmolar intravenous contrast. Comparison: None available Findings: There is no intra-axial or extra-axial fluid collection. There is no mass effect or midline shift. The ventricles and sulci are normal in size and position for age. The brain parenchyma is grossly preserved in attenuation and gaitan-white differentiation. The orbits and their contents are grossly within normal limits. The bony calvarium is grossly intact. The paranasal sinuses are clear. The mastoid air cells are well aerated. Impression: No acute intracranial abnormality. Discharge Plan Discharge Disposition: Home, Self-Care Date of Admission: 03/09/24 15:44 Attending Provider on Discharge: Kristina Sutherland Primary Care Provider: Provider,Not a Local Condition: Improved Anticipated Discharge Date/Time: 03/12/24 10:42 Discharge Medications: New metoprolol tartrate 50 mg Tablet 50 mg PO BID Qty: 60 0RF Eliquis 5 mg Tablet 10 mg PO BID Qty: 90 0RF Rx Instructions: Take 2 tablets (10mg) twice daily through 03/16/24, on 03/17/24 start taking 1 tablet (5mg) twice daily thereafter guaifenesin [Mucinex] 600 mg Tablet Extended Release 12hr 600 mg PO BID Qty: 20 0RF metformin 500 mg Tablet 500 mg PO BIDWM Qty: 60 0RF amoxicillin-pot clavulanate 875-125 mg tablet 1 tab PO BID Qty: 12 0RF Continued metoprolol tartrate 50 mg tablet 50 mg PO BID Held rosuvastatin 40 mg tablet 40 mg PO DAILY Hold Instructions: Resume on 03/24/24. Do not take until follow up with PCP as liver enzymes are elevated Discharge Orders: Discharge Order (Routine); Ordered 03/12/24 Ordered By: Kristina Sutherland Patient Education: Metoprolol (By mouth), Guaifenesin (By mouth), Amoxicillin/Clavulanate Potassium (By mouth), Metformin (By mouth), Apixaban (By mouth), Pulmonary Embolism (GEN), Liver Profile (GEN), Bacterial Pneumonia (GEN), Type 2 Diabetes Management for Adults (GEN) Additional Instructions: Continue antibiotic for pneumonia. Continue to take Eliquis 10 mg twice daily for a total of 7 days, then begin 5 mg twice daily on 03/17/2024. Your PCP will continue to manage this medication for you. Continue to take metformin twice daily. It is important to check your blood sugars with meals and before bedtime. You will see your PCP this week for further medication management. Your liver enzymes are elevated. An ultrasound was completed while in the hospital. Further tests were ordered which are sent out and are pending at time of discharge. You will need close follow-up with your PCP for further evaluation. You may need to see a hazardous waste remover for further workup as well. In the meantime, do not take rosuvastatin. Do not take Tylenol. Activity Level: No Restrictions and Other Discharge Diet: Diabetic and Other Follow Up Appointments: Provider,Not a Local [Primary Care Provider] - 03/14/24 2:30 pm (Post Hospital follow up at [facility] on 03/14 at 2:30pm with Dr. Cornejo - poorly managed DM and medication management, pneumonia, PE, abnormal liver enzymes. May need GI consult to be arranged by PCP) Forms: [employer] Info Instructions
[2024-03-14 11:36] LABS: Hep A Ab, IgM Negative (Negative); Hep B Core Ab, IgM Negative (Negative); Hep B Surface Antigen Negative (Negative); Hep C Ab by CIA Index 0.06 IV; Hep C Ab by CIA Interp Negative (Negative)
== END 2024-03-12 13:20 | disposition home or self-care (01) | DRG 720 ==
LOC: ED 14:23 → MEDSURG 14:41
PROVIDERS: Family Medicine; Physician Assistant; Admitting Provider Family Medicine; Emergency Provider Internal Medicine; Visit Provider Family Medicine
DX: A41.9 Sepsis, unspecified organism (principal); J18.9 Pneumonia, unspecified organism; I26.99 Other pulmonary embolism without acute cor pulmonale; E11.65 Type 2 diabetes mellitus with hyperglycemia; G31.84 Mild cognitive impairment of uncertain or unknown etiology; Z91.148 Patient's other noncompliance with medication regimen for other reason; R19.7 Diarrhea, unspecified; E87.1 Hypo-osmolality and hyponatremia; I10 Essential (primary) hypertension; R74.8 Abnormal levels of other serum enzymes; K76.0 Fatty (change of) liver, not elsewhere classified; K76.9 Liver disease, unspecified; Z95.5 Presence of coronary angioplasty implant and graft; I25.2 Old myocardial infarction; I25.10 Atherosclerotic heart disease of native coronary artery without angina pectoris; E78.5 Hyperlipidemia, unspecified; F17.210 Nicotine dependence, cigarettes, uncomplicated
CPT/HCPCS: 36415; 70450; 71275; 76705; 80048; 80053; 80074; 80076; 82803; 82962; 83036; 83605; 83735; 84145; 84443; 84484; 85025; 85027; 85379; 87040; 87086; 87449; 87493; 87631; 87899; 93970; 94664; 94761; 97116; 97161; 97165; 97530; 97535; 99284; 99285; A9270; J0456; J2543; J7030; J7050; Q9967

== ENCOUNTER 2024-03-14 15:21 | Outpatient (CLI) | payer BC, SELFPAY ==
--- OUTSIDE RECORDS SUMMARY | 2024-03-14 15:23 | XMS_ITS | Clinical Summary ---
Author Name Unknown Organization [facility] Address [address] [place] [address] Care Team Providers Care Anesthesia Tech Name Role Phone Jose Wu Primary Care Provider Unavailab le Source Comments You are receiving this document as you are listed as the primary care provider,follow-up provider, or the patient has been referred to you for consultation.This is in compliance with the Medicare andMedicaid EHR Incentive Program,which states Providers who transition their patient to another setting of careor provider of care or refers their patient to another provider of care shouldprovide summary care record for each transition of care or referral. [facility] Social History Tobacco Use Types Packs/Day Years Used Date Smoking Tobacco: Never Assessed Sex and Gender Information Value Date Recorded Sex Assigned at Not on file Gender Identity Not on file Sexual Orientation Not on file Plan of Treatment Health Maintenance Due Date Last Done Comments Colon Cancer Screening Plan Due 1965 Hep C Screening (Preventive Services) 1965 PSA Screening Discussion 1965 HIV Screening (Preventive Services) 1981 Adult Preventive Visit 1983 HepB (1) 1984 Cholesterol 06/16/2005 06/16/2000 Zoster/Shingles (1 of 2) 2015 COVID-19 Vaccine ( season) 2023 04/17/2021, 03/25/2021, 02/21/2021, Additional history exists Influenza (Season Ended) 2024 DTaP/Tdap/Td (3 - Tdap) 01/25/2029 01/25/2019, 05/19 HepA Aged Out No longer eligi ble based on patient's age to complete this topic Hib Aged Out No longer eligi ble based on patient's age to complete this topic IPV (Polio) Aged Out No longer eligi ble based on patient's age to complete this topic MCV4 Aged Out No longer eligi ble based on patient's age to complete this topic Pneumococcal Aged Out No longer eligi ble based on patient's age to complete this topic Procedures Procedure Name Priority Date/Time Associated Diagnosis Comments CHOLESTEROL, TOTAL AND HDL Routine 06/16/2000 7:13 PM CDT from Last 3 Months or Most Recently Relevant to Health Maintenance Results * (ABNORMAL) Cholesterol, Total and HDL (06/16/2000 7:13 PM CDT) Cholesterol 333(HH) 125 - 199 mg/dL HP CONVERSION HDL Cholesterol 31 30 - 70 mg/dL HP CONVERSION Cholesterol/HDL Ratio Screen 10.7 No normal range HP CONVERSION 06/16/2000 7:13 PM CDT Kt Dang MD LAB_1 HP CONVERSION from Last 3 Months or Most Recently Relevant to Health Maintenance Care Teams Anesthesia Tech Relationship Specialty Start Date End Date Jose Wu PCP - General 02/07/11
--- OUTSIDE RECORDS SUMMARY | 2024-03-14 15:23 | XMS_ITS | Clinical Summary ---
Author Name Unknown Organization [facility] Address [address] [place] [address] Care Team Providers Care Software Engineer Backend Name Role Phone No Ref-Primary, Physician Primary Care Provider Corey Joya MD Unavailable [phone] Allergies Active Allergy Reactions Criticality Noted Date Comments No Known Drug Allergy 05/03/2002 Medications Medication Sig Dispensed Refills Start Date End Date Status rosuvastatin (CRESTOR) 40 MG tabletIndications:Hyp erlipidemia LDL goal <70 Take 1 tablet (40 mg) by mouth daily at 2 pm 90 tablet 3 04/19/2023 Active metoprolol tartrate (LOPRESSOR) 50 MG tabletIndications:Rudy ign essential hypertension Take 1 tablet (50 mg) by mouth 2 times daily 180 tablet 3 04/19/2023 Active metFORMIN (GLUCOPHAGE) 500 MG tabletIndications:Typ e 2 diabetes mellitus without complication, without long-term current use of insulin (H) Take 2 tablets (1,000 mg) by mouth 2 times daily (with meals) 360 tablet 09/01/2023 Active Active Problems Problem Noted Date Diagnosed Date Type 2 diabetes mellitus wit hout complication, without long-term current use of insulin 04/19/2023 Benign essential hypertension 04/19/2023 Morbid obesity 04/19/2023 Hyperlipidemia LDL goal <70 04/19/2023 Encounters Date Type Department Care Team Description 12/30/2023 Orders Only [facility] [address] [facility] [address] [place] [id number] Corey Joya MD Type 2 diabetes mellitus without complication, without long-term current use of insulin (H) (Primary Dx) 12/28/2023 11:00 AM AUTOMOTIVE QUALITY ENGINEER Lab [facility] [address] [facility] [address] [place] [phone] Type 2 diabetes mellitus without complication, without long-term current use of insulin (H) 12/28/2023 Travel 12/21/2023 Refill [facility] [address] [facility] [address] [place] [phone] Corey Joya MD Medication Refill from Last 3 Months Immunizations Name Administration Dates Next Due COVID-19 MONOVALENT 12+ (Pfizer) 04/17/2021,03/08,02/21/2021,01/31/2021 TDAP (Adacel,Boostrix) 01/25/2019,05/19/2016 Family History Medical History Relation Comments Lipids Maternal Grandmother Lipids Mother Relation Status Comments Maternal Grandmother Mother Social History Tobacco Use Types Packs/Day Years Used Date Smoking Tobacco: Every Day Cigarettes Smokeless Tobacco: Never Tobacco Cessation:Ready to Q uit: Not Asked; Counseling Given: Not Answered Alcohol Use Standard Drinks/Week Comments No 0 (1 standard drink = 0.6 oz pur e alcohol) PHQ-2 Answer Date Recorded PHQ-2 Score 5 04/19/2023 Adolescent Education Answer Date Record ed Getting School Help Needed Not on file 08/10 Sex and Gender Information Value Date Recorded Sex Assigned at Not on file Gender Identity Not on file Sexual Orientation Not on file Last Filed Vital Signs Vital Sign Reading Time Taken Comments Blood Pressure 138/100 04/19/2023 9:18 AM CDT Pulse 102 04/19/2023 9:18 AM CDT Temperature 36.8 ??C (98.2 ??F) 04/19/2023 9:18 AM CD T Respiratory Rate 20 04/19/2023 9:18 AM CDT Oxygen Saturation 90% 04/19/2023 9:18 AM CDT Inhaled Oxygen Concentration - - Weight 125.5 kg (276 lb 11.2 oz) 04/19/2023 9:18 AM CDT Height 177.8 cm (5' 10) 04/19/2023 9:18 AM CDT Body Mass Index 39.7 04/19/2023 9:18 AM CDT Plan of Treatment Health Maintenance Due Date Last Done Comments CT COLONOGRAPHY 1965 EYE EXAM 1965 FIT 1965 FLEX SIG 1965 sDNA (Cologuard) 1965 Pneumococcal Vaccine: Pediatrics (0 to 5 Years) and At-Risk Patients (6 to 64 Years) (1 of 2 - PCV) 1971 COLONOSCOPY 1975 COLORECTAL CANCER SCREENING 1975 HEPATITIS B IMMUNIZATION (1 of 3 - 19+ 3-dose series) 1984 LUNG CANCER SCREENING 2015 ZOSTER IMMUNIZATION (1 of 2) 2015 COVID-19 Vaccine ( season) 2023 04/17/2021, 03/25/2021, 02/21/2021, Additional history exists PHQ-2 (once per calendar year) 2023 04/19/2023, 04/19/2023 A1C 03/27/2024 12/28/2023, 08/08, 04/19/2023 ANNUAL REVIEW OF HM ORDERS 04/19/2024 04/19/2023 BMP 04/19/2024 04/19/2023, 11/29/2002 DIABETIC FOOT EXAM 04/19/2024 04/19/2023, 04/19/2023 LIPID 04/19/2024 04/19/2023, 11/09, 07/12/2002, Additional history exists MICROALBUMIN 04/19/2024 04/19/2023 NICOTINE/TOBACCO CESSATION COUNSELING Q 1 YR 04/19/2024 04/19/2023 YEARLY PREVENTIVE VISIT 04/19/2024 04/19/2023 INFLUENZA VACCINE (Season Ended) 2024 ADVANCE CARE PLANNING 04/19/2028 04/19/2023 DTAP/TDAP/TD IMMUNIZATION (3 - Td or Tdap) 01/25/2029 01/25/2019, 05/19/2016 HIV SCREENING Completed 07/12/2002 HEPATITIS C SCREENING Completed 04/19/2023 HPV IMMUNIZATION Aged Out No longer e ligible based on patient's age to complete this topic IPV IMMUNIZATION Aged Out No longer e ligible based on patient's age to complete this topic MENINGITIS IMMUNIZATION Aged Out No l onger eligible based on patient's age to complete this topic RSV MONOCLONAL ANTIBODY Aged Out No l onger eligible based on patient's age to complete this topic Procedures Procedure Name Priority Date/Time Associated Diagnosis Comments HEMOGLOBIN A1C Routine 12/28/2023 10:55 AM AUTOMOTIVE QUALITY ENGINEER Type 2 diabetes mellitus without complication, without long-term current use of insulin (H) ALBUMIN RANDOM URINE QUANTITATIVE Routine 04/19/2023 9:59 AM CDT Type 2 diabetes mellitus without complication, without long-term current use of insulin (H) HEPATITIS C SCREEN REFLEX TO HCV RNA QUANT AND GENOTYPE Routine 04/19/2023 9:47 AM CDT Need for hepatitis C screening test LIPID REFLEX TO DIRECT LDL PANEL Routine 04/19/2023 9:47 AM CDT Hyperlipidemia LDL goal <70 COMPREHENSIVE METABOLIC PANEL Routine 04/19/2023 9:47 AM CDT Benign essential hypertension HCL HIV 1 & 2 ANTIBODY Routine 07/12/2002 9:44 AM CDT from Last 3 Months or Most Recently Relevant to Health Maintenance Results * (ABNORMAL) Hemoglobin A1c (12/28/2023 10:55 AM AUTOMOTIVE QUALITY ENGINEER) Hemoglobin A1C 13.9(H) 0.0 - 5.6 % 12/28/2023 11:12 AM AUTOMOTIVE QUALITY ENGINEER [facility] Comment: Normal <5.7% Prediabetes 5.7-6.4% ?? Diabetes 6.5% or higher Note: Adopted from ADA consensus guidelines. Blood BLOOD SPECIMEN / Unknown Venipuncture / Unknown 12/28/2023 10:55 AM AUTOMOTIVE QUALITY ENGINEER 12/28/2023 10:55 AM AUTOMOTIVE QUALITY ENGINEER Narrative [facility] - 12/28/2023 11:12 AM AUTOMOTIVE QUALITY ENGINEER Reviewed, OK with previous. Corey Joya MD LAB - BLOOD SOHAIL SWFIT [facility] [address], [address] [place] [address], [facility] [phone] * (ABNORMAL) Albumin Random Urine Quantitative with Creat Ratio (04/19/2023 9:59 AM CDT) Creatinine Urine mg/dL 63.9 mg/dL 04/19/2023 8:42 PM CDT [facility] Comment:The reference ranges have not been established in urine creatinine. The results should be integrated into the clinical context for interpretation. Albumin Urine mg/L 62.5 mg/L 2022 8:42 PM CDT [facility] Comment:The reference ranges have not been established in urine albumin. The results should be integrated into the clinical context for interpretation. Albumin Urine mg/g Cr 97.81(H) 0.00 - 17.00 mg/g Cr 04/19/2023 8:42 PM CDT [facility] Comment: Microalbuminuria is defined as an albumin:creatinine ratio of 17 to 299 for males and 25 to 299 for females. A ratio of albumin:creatinine of 300 or higher is indicative of overt proteinuria. Due to biologic variability, positive results should be confirmed by a second, first-morning random or 24-hour timed urine specimen. If there is discrepancy, a third specimen is recommended. When 2 out of 3 results are in the microalbuminuria range, this is evidence for incipient nephropathy and warrants increased efforts at glucose control, blood pressure control, and institution of therapy with an [id number]-[id number] (VELVET) inhibitor (if the patient can tolerate it). ?? Urine URINE SPECIMEN / Unknown Non-blood Collection / Unknown 04/19/2023 9:59 AM CDT 04/19/2023 9:59 AM CDT Corey Joya MD LAB - URINE ORDE JAMISON [facility] [place] [facility] [address] [facility], [address] [address], [place] [phone] * Hepatitis C Screen Reflex to HCV RNA Quant and Genotype (04/19/2023 9:47 AM CDT) Hepatitis C Antibody Nonreactive Nonreactive 04/20/2023 8:51 AM CDT [facility] DO Blood STRUCTURE OF RIGHT UPPER LIMB / Unknown Venipuncture / Unknown 04/19/2023 9:47 AM CDT 04/19/2023 9:47 AM CDT Narrative [facility]END[facility] - 04/20/2023 8:51 AM CDT Assay performance characteristics have not been established for newborns, infants, and children. Corey Joya MD LAB - BLOOD ORDE JAMISON SPECIALTY CORE/PROT/ENDO Specialty Core/Prot/Endo [address] [facility] [address] [facility] [address], [facility] [phone] * (ABNORMAL) Lipid panel reflex to direct LDL Non-fasting (04/19/2023 9:47 AM CDT) Cholesterol 308(H) <200 mg/dL 04/19/2023 8:37 PM CDT [facility] Triglycerides 267(H) <150 mg/dL 04/19/2023 8:37 PM CDT [facility] Direct Measure HDL 33(L) >=40 mg/dL 04/19/2023 8:37 PM CDT [facility] LDL Cholesterol Calculated 222(H) <=100 mg/dL 04/19/2023 8:37 PM CDT [facility] Non HDL Cholesterol 275(H) <130 mg/dL 04/19/2023 8:37 PM CDT [facility] Blood STRUCTURE OF RIGHT UPPER LIMB / Unknown Venipuncture / Unknown 04/19/2023 9:47 AM CDT 04/19/2023 9:47 AM CDT Narrative [facility] - 04/19/2023 8:37 PM CDT Cholesterol Desirable: ??<200 mg/dL Triglycerides Normal: ??Less than 150 mg/dL Borderline High: ??150-199 mg/dL High: ??200-499 mg/dL Very High: ??Greater than or equal to 500 mg/dL Direct Measure HDL Female: ??Greater than or equal to 50 mg/dL Male: ??Greater than or equal to 40 mg/dL LDL Cholesterol Desirable: ??<100mg/dL Above Desirable: ??100-129 mg/dL Borderline High: ??130-159 mg/dL High: ??160-189 mg/dL Very High: ??>= 190 mg/dL Non HDL Cholesterol Desirable: ??130 mg/dL Above Desirable: ??130-159 mg/dL Borderline High: ??160-189 mg/dL High: ??190-219 mg/dL Very High: ??Greater than or equal to 220 mg/dL Corey Joya MD LAB - BLOOD MARYE JAMISON [facility] [address] [facility], [address] [place] [phone], [facility] [phone] * (ABNORMAL) Comprehensive metabolic panel (BMP + Alb, Alk Phos, ALT, AST, Total. Bili, TP) (04/19/2023 9:47 AM CDT) Sodium 137 136 - 145 mmol/L 04/19/2023 8:37 PM CDT [facility] Potassium 4.9 3.4 - 5.3 mmol/L 04/19/2023 8:37 PM CDT [facility] Chloride 100 98 - 107 mmol/L 04/19/2023 8:37 PM CDT [facility] Carbon Dioxide (CO2) 24 22 - 29 mmol/L 04/19/2023 8:37 PM CDT [facility] Anion Gap 13 7 - 15 mmol/L 04/19/2023 8:37 PM CDT [facility] Urea Nitrogen 11.1 6.0 - 20.0 mg/dL 04/19/2023 8:37 PM CDT [facility] Creatinine 0.86 0.67 - 1.17 mg/dL 04/19/2023 8:37 PM CDT [facility] Calcium 9.7 8.6 - 10.0 mg/dL 04/19/2023 8:37 PM CDT [facility] Glucose 410(H) 70 - 99 mg/dL 04/19/2023 8:37 PM CDT [facility] Alkaline Phosphatase 128 40 - 129 U/L 04/19/2023 8:37 PM CDT [facility] AST 23 10 - 50 U/L 04/19/2023 8:37 PM CDT [facility] ALT 64(H) 10 - 50 U/L 04/19/2023 8:37 PM CDT [facility] Protein Total 6.9 6.4 - 8.3 g/dL 04/19/2023 8:37 PM CDT [facility] Albumin 4.4 3.5 - 5.2 g/dL 04/19/2023 8:37 PM CDT [facility] Bilirubin Total 0.3 <=1.2 mg/dL 04/19/2023 8:37 PM CDT [facility] GFR Estimate >90 >60 mL/min/1.7 3m2 04/19/2023 8:37 PM CDT [facility] Comment:eGFR calculated usin 2020 CKD-EPI equation. Blood STRUCTURE OF RIGHT UPPER LIMB / Unknown Venipuncture / Unknown 04/19/2023 9:47 AM CDT 04/19/2023 9:47 AM CDT Corey Joya MD LAB - BLOOD SOHAIL SWIFT [facility] [place] [facility] [address] [facility], [address] [phone], [facility] [phone] * HIV-1/HIV-2, SCREEN (07/12/2002 9:44 AM CDT) HIV 1&2 Antibody Negative NEG [facility] 07/12/2002 9:44 AM CDT 07/12/2002 10:32 AM CDT Emery Thakkar MD LABORATORY [facility] from Last 3 Months or Most Recently Relevant to Health Maintenance Care Teams Software Engineer Backend Relationship Specialty Start Date End Date No Ref-Primary, Physician PCP - General 03/16/23 Corey Joya MD [address] [place] [address] Assigned PCP 03/24/23
--- OUTSIDE RECORDS SUMMARY | 2024-03-14 15:24 | XMS_ITS | Encounter Summary ---
Author Name Unknown Organization [facility] Address [address] [place] [address]. [place] [address] Care Team Providers Care Psychology Tech Name Role Phone No Ref-Primary, Physician Primary Care Provider Corey Joya MD Unavailable [phone] Reason for Visit * Reason Comments Medication Refill Encounter Details Date Type Department Care Team (Late st Contact Info) Description 12/21/2023 Refill [facility] [address] [facility] [address] [place] [address] Corey Joya MD [address] [place] [address] Medication Refill Social History Tobacco Use Types Packs/Day Years Used Date Smoking Tobacco: Every Day Cigarettes Smokeless Tobacco: Never Alcohol Use Standard Drinks/Week Comments No 0 (1 standard drink = 0.6 oz pur e alcohol) PHQ-2 Answer Date Recorded PHQ-2 Score 5 04/19/2023 Adolescent Education Answer Date Record ed Getting School Help Needed Not on file 08/10 Sex and Gender Information Value Date Recorded Sex Assigned at Not on file Gender Identity Not on file Sexual Orientation Not on file documented as of this encounter Miscellaneous Notes * Telephone Encounter - Lizzy Acuna RN - 12/22/2023 8:40 AM CST Left a voicemail asking patient to call the clinic back. Please advise patient of message below andassist in scheduling. ICAL CARE TECHNICIAN * Telephone Encounter - Corey Joya MD - 12/22/2023 5:32 AM CRITICAL CARE TECHNICIAN Needs follow-up hemoglobin A1c. Lab orders placed. ICAL CARE TECHNICIAN documented in this encounter Plan of Treatment Not on file documented as of this encounter Visit Diagnoses Diagnosis Type 2 diabetes mellitus without complication, without long-term current use of insulin (H) documented in this encounter Additional Health Concerns Assessment Noted Time PHQ-9 Depression Total Score: 21 023 9:09 AM CDT documented as of this encounter Care Teams Psychology Tech Relationship Specialty Start Date End Date No Ref-Primary, Physician PCP - General 03/16/23 Corey Joya MD [address] [place] [address] Assigned PCP 03/24/23 documented as of this encounter
--- OUTSIDE RECORDS SUMMARY | 2024-03-14 15:24 | XMS_ITS | Encounter Summary ---
Author Name Unknown Organization [facility] Address [address] [place] [address] Care Team Providers Care Collection Correspondent Name Role Phone Doctor, Collins MONCADA Primary Care Provider Unavailabl e No Ref-Primary, Physician Primary Care Provider Corey Joya MD Unavailable [phone] Encounter Details Date Type Department Care Team (Late st Contact Info) Description 05/03/[address] [place] [address] Emery Thakkar MD Social History Tobacco Use Types Packs/Day Years Used Date Smoking Tobacco: Never Assessed Sex and Gender Information Value Date Recorded Sex Assigned at Not on file Gender Identity Not on file Sexual Orientation Not on file documented as of this encounter Plan of Treatment Not on file documented as of this encounter Visit Diagnoses Not on filedocumented in this encounter Care Teams Collection Correspondent Relationship Specialty Start Date End Date Doctor, MD Collins PCP - General 12/23/01 07/08/17 No Ref-Primary, Physician PCP - General 03/16/23 Corey Joya MD [address] [place] [address] Assigned PCP 03/24/23 documented as of this encounter
--- OUTSIDE RECORDS SUMMARY | 2024-03-14 15:24 | XMS_ITS | Encounter Summary ---
Author Name Unknown Organization [facility] Address [address] [place] [address] Care Team Providers Care Remittance Clerk Name Role Phone No Ref-Primary, Physician Primary Care Provider Corey Joya MD Unavailable [phone] Encounter Details Date Type Department Care Team (Late st Contact Info) Description 12/28/2023 11:00 AM INDOOR LANDSCAPER/GARDENER Lab [facility] [address] [facility] [address] [place] [address] Type 2 diabetes mellitus without complication, without long-term current use of insulin (H) Social History Tobacco Use Types Packs/Day Years [...] on file documented as of this encounter Procedures Procedure Name Priority Date/Time Associated Diagnosis Comments HEMOGLOBIN A1C Routine 12/28/2023 10:55 AM INDOOR LANDSCAPER/GARDENER Type 2 diabetes mellitus without complication, without long-term current use of insulin (H) documented in this encounter Results * (ABNORMAL) Hemoglobin A1c (12/28/2023 10:55 AM INDOOR LANDSCAPER/GARDENER) Hemoglobin A1C 13.9(H) 0.0 - 5.6 % 12/28/2023 11:12 AM INDOOR LANDSCAPER/GARDENER [facility] Comment: Normal <5.7% Prediabetes 5.7-6.4% ?? Diabetes 6.5% or higher Note: Adopted from ADA consensus guidelines. Blood BLOOD SPECIMEN / Unknown Venipuncture / Unknown 12/28/2023 10:55 AM INDOOR LANDSCAPER/GARDENER 12/28/2023 10:55 AM INDOOR LANDSCAPER/GARDENER Narrative [facility] - 12/28/2023 11:12 AM INDOOR LANDSCAPER/GARDENER Reviewed, OK with previous. Corey Joya MD LAB - BLOOD SOHAIL SWIFT [facility] [address] [place] [address], [facility] [phone] documented in this encounter Visit Diagnoses Diagnosis Type 2 diabetes mellitus without complication, without long-term current use of insulin (H) documented in this encounter Additional Health Concerns Assessment Noted Time PHQ-9 Depression Total Score: 21 04/19/ 023 9:09 AM CDT documented as of this encounter Care Teams Remittance Clerk Relationship Specialty Start Date End Date No Ref-Primary, Physician PCP - General 03/16/23 Corey Joya MD [address] [place] [address] Assigned PCP 03/24/23 documented as of this encounter
--- OUTSIDE RECORDS SUMMARY | 2024-03-14 15:24 | XMS_ITS | Encounter Summary ---
Author Name Unknown Organization [facility] Address [address] [place] [address]. [place] [address] Care Team Providers Care Activity Assistant Name Role Phone No Ref-Primary, Physician Primary Care Provider Corey Joya MD Unavailable [phone] Reason for Referral * Consultation (Routine: Next available opening) - Pending Review Specialty Diagnoses / Procedures Referred By Kay ryan Referred To Contact Endocrinology, Diabetes, and Metabolism Diagnoses Type 2 diabetes mellitus without complication, without long-term current use of insulin (H) Corey Joya MD [address] [place] [address] Referral ID Status Reason Start Date Expiration Date V isits Requested Visits Authorized [id number] Pending Review 12/30/2023 12/29/2024 1 1 Question Answer Reason for Referral: Diabetes Scheduling Instructions: [employer] will call you to coordinate your care as prescribed by the provider. If you don? t hear from a medicare sales representative within 2 business days, please call [phone]. Comments Please be aware that coverage of these services is subject to the terms and limitations of your health insurance plan. Call member services at your health plan with any benefit or coverage questions. [employer] will call you to coordinate your care as prescribed by the provider. If you don? t hear from a medicare sales representative within 2 business days, please call [phone]. [employer] Encounter Details Date Type Department Care Team (Late st Contact Info) Description 12/30/2023 Orders Only [facility] [address] [place] [phone] Corey Joya MD [address] [place] [address] Type 2 diabetes mellitus without complication, without long-term current use of insulin (H) (Primary Dx) Social History Tobacco Use Types Packs/Day Years [...] as of this encounter Plan of Treatment Scheduled Referrals Name Type Priority Associated Diagnoses Order Schedule Adult Endocrinology Health Information Management Director Referral Referral Routine: Next available opening Type 2 diabetes mellitus without complication, without long-term current use of insulin (H) Expected: 12/30/2023 (Approximate), Expires: 12/30/2024 documented as of this encounter Visit Diagnoses Diagnosis Type 2 diabetes mellitus without complication, without long-term current use of insulin (H)- Primary documented in this encounter Additional Health Concerns Assessment Noted Time PHQ-9 Depression Total Score: 21 023 9:09 AM CDT documented as of this encounter Care Teams Activity Assistant Relationship Specialty Start Date End Date No Ref-Primary, Physician PCP - General 03/16/23 Corey Joya MD [address] [place], [place] [phone] Assigned PCP 03/24/23 documented as of this encounter
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
--- OUTSIDE RECORDS SUMMARY | 2024-03-14 15:24 | XMS_ITS | Encounter Summary ---
Author Name Unknown Organization [facility] Address [address] [place] [address] Care Team Providers Care Patch Machine Operator Name Role Phone No Ref-Primary, Physician Primary Care Provider Croey Joya MD Unavailable Encounter Details Date Type Department Care Team (Latest Contact Info) Description 12/28/2023 Travel Social History Tobacco Use Types Packs/Day Years [...] Diagnoses Not on filedocumented in this encounter Additional Health Concerns Assessment Noted Time PHQ-9 Depression Total Score: 21 023 9:09 AM CDT documented as of this encounter Care Teams Patch Machine Operator Relationship Specialty Start Date End Date No Ref-Primary, Physician PCP - General 03/16/23 Corey Joya MD [address] [place], [place] [address] Assigned PCP 03/24/23 documented as of this encounter
--- OUTSIDE RECORDS SUMMARY | 2024-03-14 15:24 | XMS_ITS | Referral Summary ---
Author Name Unknown Organization [facility] Address [address] [place] [address] Care Team Providers Care Social Services Specialist Name Role Phone No Ref-Primary, Physician Primary Care Provider Corey Joya MD Unavailable [phone] Encounters Date Type Department Care Team Description 12/30/2023 Orders Only [facility] [address] [facility] [address] [place] [phone] Corey Joya MD Type 2 diabetes mellitus without complication, without long-term current use of insulin (H) (Primary Dx) 12/28/2023 Travel 12/28/2023 11:00 AM MANAGER LABOR DELIVERY Lab [facility] [address] [facility] [address] [place] [phone] Type 2 diabetes mellitus without complication, without long-term current use of insulin (H) 12/21/2023 Refill [facility] [address] [facility] [address] [place] [phone] Corey Joya MD Medication Refill from Last 3 Months Allergies Active Allergy Reactions Criticality Noted Date [...] obesity 04/19/2023 Hyperlipidemia LDL goal <70 04/19/2023 Immunizations Name Administration Dates Next Due COVID-19 MONOVALENT 12+ (Pfizer) 04/17/2021,03/08,02/21/2021,01/31/2021 TDAP (Adacel,Boostrix) 01/25/2019,05/19/2016 Social History Tobacco Use Types Packs/Day Years [...] 04/19/2023 9:18 AM CDT Plan of Treatment Not on file Procedures Procedure Name Priority Date/Time Associated Diagnosis Comments HEMOGLOBIN A1C Routine 12/28/2023 10:55 AM MANAGER LABOR DELIVERY Type 2 diabetes mellitus without complication, without [...] * (ABNORMAL) Hemoglobin A1c (12/28/2023 10:55 AM MANAGER LABOR DELIVERY) Hemoglobin A1C 13.9(H) 0.0 - 5.6 % 12/28/2023 11:12 AM MANAGER LABOR DELIVERY [facility] Comment: Normal <5.7% Prediabetes 5.7-6.4% ?? Diabetes 6.5% or higher Note: Adopted from ADA consensus guidelines. Blood BLOOD SPECIMEN / Unknown Venipuncture / Unknown 12/28/2023 10:55 AM MANAGER LABOR DELIVERY 12/28/2023 10:55 AM MANAGER LABOR DELIVERY Narrative [facility] - 12/28/2023 11:12 AM MANAGER LABOR DELIVERY Reviewed, OK with previous. Corey Joya MD LAB - BLOOD S[place]AIL SWIFT [place] [facility] [address], [address] [place] [address], [facility] [phone] * (ABNORMAL) Albumin Random Urine Quantitative with [...] control, and institution of therapy with an rfigjzxrfkw-mylzzubyuc-thoqnv (VELVET) inhibitor (if the patient can tolerate it). ?? Urine URINE SPECIMEN / Unknown Non-blood Collection / Unknown 04/19/2023 9:59 AM CDT 04/19/2023 9:59 AM CDT Corey Joya MD LAB - URINE ORDE JAMISON [facility] [place] [facility] [address] [facility], [address] [place] [address], [facility] [phone] * Hepatitis C Screen Reflex to HCV RNA Quant and Genotype (04/19/2023 9:47 AM CDT) Hepatitis C Antibody Nonreactive Nonreactive 04/20/2023 8:51 AM CDT [facility] CORE/PROT/EN DO Blood STRUCTURE OF RIGHT UPPER LIMB / Unknown Venipuncture / Unknown 04/19/2023 9:47 AM CDT 04/19/2023 9:47 AM CDT Narrative SPECIALTY CORE/PROT/ENDO - 04/20/2023 8:51 AM CDT Assay performance characteristics have not been established for newborns, infants, and children. Corey Joya MD LAB - BLOOD ORDE JAMISON [facility] SPECIALTY CORE/PROT/ENDO Specialty Core/Prot/Endo [address] [facility] [address] [facility], [address] [phone] * (ABNORMAL) Lipid panel reflex to direct [...] mg/dL Corey Joya MD LAB - BLOOD SOHAIL SWIFT [facility] [place] [facility] [address] [facility], [address] [place] [address], [facility] [phone] * (ABNORMAL) Comprehensive metabolic panel (BMP + [...] Joya MD LAB - BLOOD SOHAIL SWIFT [facility] [place] [facility] [address] [facility], [address] [phone], [facility] [phone] * HIV-1/HIV-2, SCREEN (07/12/2002 9:44 AM CDT) HIV 1&2 Antibody Negative NEG [facility] 07/12/2002 9:44 AM CDT 07/12/2002 10:32 AM CDT Emery Thakkar MD LABORATORY [facility] LABS from Last 3 Months or Most Recently Relevant to Health Maintenance Care Teams Social Services Specialist Relationship Specialty Start Date End Date No Ref-Primary, Physician PCP - General 03/16/23 Corey Joya MD [address] [place] [address] Assigned PCP 03/24/23
== END 2024-03-14 15:22 | disposition home or self-care (01) ==
PROVIDERS: PCP Family Medicine; Visit Provider Family Medicine
DX: E78.5 Hyperlipidemia, unspecified (principal); I10 Essential (primary) hypertension; E87.1 Hypo-osmolality and hyponatremia
CPT/HCPCS: 80053; 80061; 82043; 82570

== ENCOUNTER 2024-03-29 15:22 | Outpatient (CLI) | payer BC, SELFPAY ==
--- OUTSIDE RECORDS SUMMARY | 2024-03-29 15:25 | XMS_ITS | Encounter Summary ---
Author Organization [facility] Address [address] [place] [address] Care Team Providers Care Crowd Controller Name Role Phone No Ref-Primary, Physician Primary Care Provider Corey Joya MD Unavailable [phone] Encounter Details Date Type Department Care Team (Late st Contact Info) Description 12/28/2023 11:00 AM APPLICATIONS ADMINISTRATOR Lab [facility] [address] [facility] [address] [place] [phone] Type 2 diabetes mellitus without complication, without [...] Comments HEMOGLOBIN A1C Routine 12/28/2023 10:55 AM APPLICATIONS ADMINISTRATOR Type 2 diabetes mellitus without complication, without long-term current use of insulin (H) documented in this encounter Results * (ABNORMAL) Hemoglobin A1c (12/28/2023 10:55 AM APPLICATIONS ADMINISTRATOR) Hemoglobin A1C 13.9(H) 0.0 - 5.6 % 12/28/2023 11:12 AM APPLICATIONS ADMINISTRATOR [facility] Comment: Normal <5.7% Prediabetes 5.7-6.4% ?? Diabetes 6.5% or higher Note: Adopted from ADA consensus guidelines. Blood BLOOD SPECIMEN / Unknown Venipuncture / Unknown 12/28/2023 10:55 AM APPLICATIONS ADMINISTRATOR 12/28/2023 10:55 AM APPLICATIONS ADMINISTRATOR Narrative [facility] - 12/28/2023 11:12 AM APPLICATIONS ADMINISTRATOR Reviewed, OK with previous. Corey Joya MD LAB - BLOOD S[place]AIL SWIFT [facility] [address], [address] [place] [address], [facility] [phone] documented in this encounter Visit Diagnoses Diagnosis Type 2 diabetes mellitus without complication, without long-term current use of insulin (H) documented in this encounter Additional Health Concerns Assessment Noted Time PHQ-9 Depression Total Score: 21 04/19/ 023 9:09 AM CDT documented as of this encounter Care Teams Crowd Controller Relationship Specialty Start Date End Date No Ref-Primary, Physician PCP - General 03/16/23 Corey Joya MD [address] [place] [address] Assigned PCP 03/24/23 documented as of this encounter
--- OUTSIDE RECORDS SUMMARY | 2024-03-29 15:25 | XMS_ITS | Clinical Summary ---
Author Organization [facility] Address [address], [place] [address] Care Team Providers Care Bond Runner Name Role Phone Jose Wu Primary Care [...] for each transition of care or referral. [facility] Social History Tobacco Use Types Packs/Day Years [...] Recently Relevant to Health Maintenance Care Teams Bond Runner Relationship Specialty Start Date End Date Jose Wu PCP - General 02/07/11
--- OUTSIDE RECORDS SUMMARY | 2024-03-29 15:25 | XMS_ITS | Referral Summary ---
Author Organization [facility] Address [address] [place] [address] Care Team Providers Care Filler Spreader Name Role Phone No Ref-Primary, Physician Primary Care Provider Corey Joya MD Unavailable [phone] Encounters Date Type Department Care Team Description 12/30/2023 Orders Only [facility] [address] [facility] [address] [place] [address] Corey Joya MD Type 2 diabetes mellitus without complication, without long-term current use of insulin (H) (Primary Dx) from Last 3 Months Allergies Active Allergy [...] Comments HEMOGLOBIN A1C Routine 12/28/2023 10:55 AM BIKE TECHNICIAN Type 2 diabetes mellitus without complication, without [...] * (ABNORMAL) Hemoglobin A1c (12/28/2023 10:55 AM BIKE TECHNICIAN) Hemoglobin A1C 13.9(H) 0.0 - 5.6 % 12/28/2023 11:12 AM BIKE TECHNICIAN [facility] Comment: Normal <5.7% Prediabetes 5.7-6.4% ?? Diabetes 6.5% or higher Note: Adopted from ADA consensus guidelines. Blood BLOOD SPECIMEN / Unknown Venipuncture / Unknown 12/28/2023 10:55 AM BIKE TECHNICIAN 12/28/2023 10:55 AM BIKE TECHNICIAN Narrative [facility] - 12/28/2023 11:12 AM BIKE TECHNICIAN Reviewed, OK with previous. Corey Joya MD LAB - BLOOD [place] [facility] [facility] [address], [address] [place] [address], [facility] [phone] * (ABNORMAL) Albumin Random Urine Quantitative with [...] control, and institution of therapy with an qgaauuygblr-tcpwsglzgb-dlyyns (VELVET) inhibitor (if the patient can tolerate it). ?? Urine URINE SPECIMEN / Unknown Non-blood Collection / Unknown 04/19/2023 9:59 AM CDT 04/19/2023 9:59 AM CDT Corey Joya MD LAB - URINE ORDJeri SWIFT [facility] [place] [facility] [address] [facility], [address] [address], [facility] [phone] * Hepatitis C Screen Reflex to HCV RNA Quant and Genotype (04/19/2023 9:47 AM CDT) Hepatitis C Antibody Nonreactive Nonreactive 04/20/2023 8:51 AM CDT SPECIALTY CORE/PROT/EN DO Blood STRUCTURE OF RIGHT UPPER LIMB / Unknown Venipuncture / Unknown 04/19/2023 9:47 AM CDT 04/19/2023 9:47 AM CDT Narrative UM SPECIALTY CORE/PROT/ENDO - 04/20/2023 8:51 AM CDT Assay performance characteristics have not been established for newborns, infants, and children. Corey Joya MD LAB - BLOOD ORDE JAMISON UM SPECIALTY CORE/PROT/ENDO UM Specialty Core/Prot/Endo [address] [facility], [address] [phone] * (ABNORMAL) Lipid panel reflex to direct [...] LAB - BLOOD SOHAIL SWIFT [facility] [place] [facility] [address] [facility] [address] [facility], [address] [place] [address], [facility] [phone] * (ABNORMAL) Comprehensive metabolic panel (BMP + [...] >60 mL/min/1.7 3m2 04/19/2023 8:37 PM CDT U LAB[facility] Comment:eGFR calculated us2020 CKD-EPI equation. Blood STRUCTURE OF RIGHT UPPER LIMB / Unknown Venipuncture / Unknown 04/19/2023 9:47 AM CDT 04/19/2023 9:47 AM CDT Corey Joya MD LAB - BLOOD SOHAIL SWIFT [facility] [place] [facility] [address] [facility], [address] [place] [address], [facility] [phone] * HIV-1/HIV-2, SCREEN (07/12/2002 9:44 AM CDT) HIV 1&2 Antibody Negative NEG [facility] 07/12/2002 9:44 AM CDT 07/12/2002 10:32 AM CDT Emery Thakkar MD LABORATORY [facility] from Last 3 Months or Most Recently Relevant to Health Maintenance Care Teams Filler Spreader Relationship Specialty Start Date End Date No Ref-Primary, Physician PCP - General 03/16/23 Corey Joya MD [address] [place] [address] Assigned PCP 03/24/23
--- OUTSIDE RECORDS SUMMARY | 2024-03-29 15:25 | XMS_ITS | Clinical Summary ---
Author Organization [facility] Address [address] [place] [address] Care Team Providers Care Joint Machine Operator Name Role Phone No Ref-Primary, Physician Primary Care Provider Corey Joya MD Unavailable Allergies Active Allergy Reactions Criticality Noted Date [...] Department Care Team Description 12/30/2023 Orders Only [facility] [address] [place] [phone] Corey Joya MD Type 2 diabetes mellitus without complication, without long-term current use of insulin (H) (Primary Dx) from Last 3 Months Immunizations Name Administration [...] Comments HEMOGLOBIN A1C Routine 12/28/2023 10:55 AM CAR MECHANIC HELPER Type 2 diabetes mellitus without complication, without [...] * (ABNORMAL) Hemoglobin A1c (12/28/2023 10:55 AM CAR MECHANIC HELPER) Hemoglobin A1C 13.9(H) 0.0 - 5.6 % 12/28/2023 11:12 AM CAR MECHANIC HELPER [facility] Comment: Normal <5.7% Prediabetes 5.7-6.4% ?? Diabetes 6.5% or higher Note: Adopted from ADA consensus guidelines. Blood BLOOD SPECIMEN / Unknown Venipuncture / Unknown 12/28/2023 10:55 AM CAR MECHANIC HELPER 12/28/2023 10:55 AM CAR MECHANIC HELPER Narrative [facility] - 12/28/2023 11:12 AM CAR MECHANIC HELPER Reviewed, OK with previous. Corey Joya MD LAB - BLOOD SOHAIL SWIFT [facility] [address], [address] [place] [address], [facility] [phone] * (ABNORMAL) Albumin Random Urine Quantitative with [...] control, and institution of therapy with an ikyzrirhyop-jhjqgibxrs-mzcssr (VELVET) inhibitor (if the patient can tolerate it). ?? Urine URINE SPECIMEN / Unknown Non-blood Collection / Unknown 04/19/2023 9:59 AM CDT 04/19/2023 9:59 AM CDT Corey Joya MD LAB - URINE SOHAIL SWIFT [facility] Organization Address City/State/ZIP Co de Phone Number UU LABORATORY [facility] Core Lab [address] [facility], [address] [phone] [phone] * Hepatitis C Screen Reflex to HCV [...] children. Corey Joya MD LAB - BLOOD SHOAIL SWIFT [facility] SPECIALTY CORE/PROT/ENDO UM Specialty Core/Prot/Endo [address] [facility] [address] [facility], [address] [place] [address], [facility] [phone] * (ABNORMAL) Lipid panel reflex to direct [...] LAB - BLOOD SOHAIL SWIFT [facility] [address] [facility], [address] [place] [address], [facility] [phone] * (ABNORMAL) Comprehensive metabolic panel (BMP + [...] CDT Corey Joya MD LAB - BLOOD ORDE JAMISON [facility] [address] [facility], [address] [address], [facility] [phone] * HIV-1/HIV-2, SCREEN (07/12/2002 9:44 AM CDT) HIV 1&2 Antibody Negative NEG [facility] 07/12/2002 9:44 AM CDT 07/12/2002 10:32 AM CDT Emery Thakkar MD LABORATORY [facility] from Last 3 Months or Most Recently Relevant to Health Maintenance Care Teams Joint Machine Operator Relationship Specialty Start Date End Date No Ref-Primary, Physician PCP - General 03/16/23 Corey Joya MD [address] [place] [address] Assigned PCP 03/24/23
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
--- OUTSIDE RECORDS SUMMARY | 2024-03-29 15:25 | XMS_ITS | Encounter Summary ---
Author Organization [facility] Address [address] [place] [address] Care Team Providers Care Export Packer Name Role Phone Doctor, Collins MONCADA Primary Care Provider Unavailabl e No Ref-Primary, Physician Primary Care Provider Corey Joya MD Unavailable [phone] Encounter Details Date Type Department Care Team (Late st Contact Info) Description 05/03/[address] [place] [address] Emery Thakkar MD Social History [...] on filedocumented in this encounter Care Teams Export Packer Relationship Specialty Start Date End Date DoctorCollins MD PCP - General 12/23/01 07/08/17 No Ref-Primary, Physician PCP - General 03/16/23 Corey Joya MD [address] [place] [address] Assigned PCP 03/24/23 documented as of this encounter
--- OUTSIDE RECORDS SUMMARY | 2024-03-29 15:25 | XMS_ITS | Encounter Summary ---
Author Organization [facility] Address [address] [place] [address]. [place] [address] Care Team Providers Care Construction Carpenters Helper Name Role Phone No Ref-Primary, Physician Primary Care Provider Corey Joya MD Unavailable Reason for Referral * Consultation (Routine: Next available opening) - Pending Review Specialty Diagnoses / Procedures Referred By Contac t Referred To Contact Endocrinology, Diabetes, and Metabolism Diagnoses Type 2 diabetes mellitus without complication, without long-term current use of insulin (H) Corey Joya MD [address] [place] [address] Referral ID Status Reason Start Date Expiration Date V isits Requested Visits Authorized [id number] Pending Review 12/30/2023 12/29/2024 1 1 Question Answer Reason for Referral: Diabetes Scheduling Instructions: [facility] will call you to coordinate your care as prescribed by the provider. If you don? t hear from a sales donor recruitment representative within 2 business days, please call [phone]. Comments Please be aware that coverage of these services is subject to the terms and limitations of your health insurance plan. Call member services at your health plan with any benefit or coverage questions. [facility] will call you to coordinate your care as prescribed by the provider. If you don? t hear from a sales donor recruitment representative within 2 business days, please call [phone]. RWRITING INTERN Encounter Details Date Type Department Care Team (Late st Contact Info) Description 12/30/2023 Orders Only [facility] [address] [place] [phone] Corey Joya MD [address] [place] [address] Type 2 diabetes mellitus without complication, without [...] Priority Associated Diagnoses Order Schedule Adult Endocrinology Substation Electrician Supervisor Referral Referral Routine: Next available opening Type [...] documented as of this encounter Care Teams Construction Carpenters Helper Relationship Specialty Start Date End Date No Ref-Primary, Physician PCP - General 03/16/23 Corey Joya MD [address] [place], [place] [address] Assigned PCP 03/24/23 documented as of this encounter
--- OUTSIDE RECORDS SUMMARY | 2024-03-29 15:25 | XMS_ITS | Encounter Summary ---
Author Organization [facility] Address [address] [place] [address] Care Team Providers Care Rehab Aide Name Role Phone No Ref-Primary, Physician Primary Care Provider Corey Joya MD Unavailable [phone] Encounter Details Date Type Department Care Team [...] documented as of this encounter Care Teams Rehab Aide Relationship Specialty Start Date End Date No Ref-Primary, Physician PCP - General 03/16/23 Corey Joya MD [address] [place] [address] Assigned PCP 03/24/23 documented as of this encounter
--- OUTSIDE RECORDS SUMMARY | 2024-03-29 15:25 | XMS_ITS | Encounter Summary ---
Author Organization [facility] Address [address] [place] [address]. [place] [address] Care Team Providers Care Cut In Station Operator Name Role Phone No Ref-Primary, Physician Primary Care Provider Corey Joya MD Unavailable [phone] Reason for Visit * Reason Comments Medication Refill Encounter Details Date Type Department Care Team (Late st Contact Info) Description 12/21/[address] [place] [phone] Corey Joya MD [address] [place] [address] Medication Refill Social History Tobacco [...] patient of message below andassist in scheduling. VAN CDL TRUCK DRIVER * Telephone Encounter - Corey Joya MD - 12/22/2023 5:32 AM OTR VAN CDL TRUCK DRIVER Needs follow-up hemoglobin A1c. Lab orders placed. VAN CDL TRUCK DRIVER documented in this encounter Plan of Treatment Not on file documented as of this encounter Visit Diagnoses Diagnosis Type 2 diabetes mellitus without complication, without long-term current use of insulin (H) documented in this encounter Additional Health Concerns Assessment Noted Time PHQ-9 Depression Total Score: 21 023 9:09 AM CDT documented as of this encounter Care Teams Cut In Station Operator Relationship Specialty Start Date End Date No Ref-Primary, Physician PCP - General 03/16/23 Corey Joya MD [address] [place] [address] Assigned PCP 03/24/23 documented as of this encounter
== END 2024-03-29 15:23 | disposition home or self-care (01) ==
LOC: NFLDREF 15:23
PROVIDERS: PCP Family Medicine; Visit Provider Family Medicine
DX: E11.9 Type 2 diabetes mellitus without complications (principal)
CPT/HCPCS: 80053

== ENCOUNTER 2024-06-26 07:37 | Outpatient (CLI) | payer BC, SELFPAY ==
--- OUTSIDE RECORDS SUMMARY | 2024-06-26 14:54 | XMS_ITS | Clinical Summary ---
Author Organization [facility] Address [address] [place] [address] Care Team Providers Care Film Sound Coordinator Name Role Phone No Ref-Primary, Physician Primary [...] (1 of 2) 2015 COVID-19 Vaccine ( - season) 2023 04/17/2021, 03/25/2021, 02/21/2021, Additional history exists PHQ-2 (once per calendar year) 2023 04/19/2023, 04/19/2023 A1C 03/27/2024 12/28/2023, 08/08, 04/19/2023 ANNUAL REVIEW OF HM ORDERS 04/19/2024 04/19/2023 BMP 04/19/2024 04/19/2023, 11/29/2002 DIABETIC FOOT EXAM 04/19/2024 04/19/2023, 04/19/2023 LIPID 04/19/2024 04/19/2023, 11/09, 07/12/2002, Additional history exists MICROALBUMIN 04/19/2024 04/19/2023 YEARLY PREVENTIVE VISIT 04/19/2024 04/19/2023 INFLUENZA VACCINE (#1) 2024 ADVANCE CARE PLANNING 04/19/2028 04/19/2023 DTAP/TDAP/TD [...] Comments HEMOGLOBIN A1C Routine 12/28/2023 10:55 AM DIAGNOSTIC ASSISTANT Type 2 diabetes mellitus without complication, without [...] * (ABNORMAL) Hemoglobin A1c (12/28/2023 10:55 AM DIAGNOSTIC ASSISTANT) Hemoglobin A1C 13.9(H) 0.0 - 5.6 % 12/28/2023 11:12 AM DIAGNOSTIC ASSISTANT [facility] Comment: Normal <5.7% Prediabetes 5.7-6.4% ?? Diabetes 6.5% or higher Note: Adopted from ADA consensus guidelines. Blood BLOOD SPECIMEN / Unknown Venipuncture / Unknown 12/28/2023 10:55 AM DIAGNOSTIC ASSISTANT 12/28/2023 10:55 AM DIAGNOSTIC ASSISTANT Narrative [facility] - 12/28/2023 11:12 AM DIAGNOSTIC ASSISTANT Reviewed, OK with previous. Corey Joya MD LAB - BLOOD SOHAIL SWIFT [facility] [place] [facility] [address], [address] [place] [address], [facility] [phone] * (ABNORMAL) Albumin Random Urine Quantitative with [...] control, and institution of therapy with an snprkmabkhb-agegkcvnqq-yslxla (VELVET) inhibitor (if the patient can tolerate it). ?? Urine URINE SPECIMEN / Unknown Non-blood Collection / Unknown 04/19/2023 9:59 AM CDT 04/19/2023 9:59 AM CDT Corey Joya MD LAB - URINE SOHAIL SWIFT Performing Organization Address City/[facility]/ZIP Co de Phone Number [facility]U LABORATORY [facility] [place] [facility] Lab [address] [facility], [address] [address], [facility] [phone] * Hepatitis C Screen Reflex to HCV [...] children. Corey Joya MD LAB - BLOOD SOHAIL SWIFT SPECIALTY CORE/PROT/ENDO Specialty Core/Prot/Endo [address] [facility], Room [address] [address] [phone] * (ABNORMAL) Lipid panel reflex to direct [...] LAB - BLOOD SOHAIL SWIFT [facility] [place] [facility] Lab [address] [facility], Room [address] [place] [address], [facility] [phone] * (ABNORMAL) Comprehensive metabolic panel (BMP + Alb, Alk Phos, ALT, AST, Total. Bili, TP) (04/19/2023 9:47 AM CDT) Pathologist [facility] Sodium 137 136 - 145 mmol/L 04/19/2023 [...] LAB - BLOOD ORDE JAMISON [facility] LAB[facility]ATORY [facility] [place] [facility] Lab [address] [facility] [address], [address] [phone], [facility] [phone] * HIV-1/HIV-2, SCREEN (07/12/2002 9:44 AM CDT) HIV 1&2 Antibody Negative NEG [facility] 07/12/2002 9:44 AM CDT 07/12/2002 10:32 AM CDT Emery Thakkar MD LABORATORY [facility] from Last 3 Months or Most Recently Relevant to Health Maintenance Care Teams Film Sound Coordinator Relationship Specialty Start Date End Date No Ref-Primary, Physician PCP - General 03/16/23 Corey Joya MD [address] [place] [address] Assigned PCP 03/24/23
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
--- OUTSIDE RECORDS SUMMARY | 2024-06-26 14:54 | XMS_ITS | Referral Summary ---
Author Organization [facility] Address [address] [place] [address] Care Team Providers Care Director Of Respiratory Therapy Name Role Phone No Ref-Primary, Physician Primary Care Provider Corey Joya MD Unavailable [phone] Allergies Active Allergy Reactions Criticality Noted Date [...] Comments HEMOGLOBIN A1C Routine 12/28/2023 10:55 AM DIGITAL CAMPAIGN SPECIALIST Type 2 diabetes mellitus without complication, without [...] * (ABNORMAL) Hemoglobin A1c (12/28/2023 10:55 AM DIGITAL CAMPAIGN SPECIALIST) Hemoglobin A1C 13.9(H) 0.0 - 5.6 % 12/28/2023 11:12 AM DIGITAL CAMPAIGN SPECIALIST [facility] Comment: Normal <5.7% Prediabetes 5.7-6.4% ?? Diabetes 6.5% or higher Note: Adopted from ADA consensus guidelines. Blood BLOOD SPECIMEN / Unknown Venipuncture / Unknown 12/28/2023 10:55 AM DIGITAL CAMPAIGN SPECIALIST 12/28/2023 10:55 AM DIGITAL CAMPAIGN SPECIALIST Narrative [facility] - 12/28/2023 11:12 AM DIGITAL CAMPAIGN SPECIALIST Reviewed, OK with previous. Corey Joya MD LAB - BLOOD SOHAIL SWIFT [facility] [place] [facility] [address], [address] [place] [address], [facility] [phone] * (ABNORMAL) Albumin Random Urine Quantitative with [...] control, and institution of therapy with an bmzatmlwxfh-moxxltgsqd-nchqro (VELVET) inhibitor (if the patient can tolerate it). ?? Urine URINE SPECIMEN / Unknown Non-blood Collection / Unknown 04/19/2023 9:59 AM CDT 04/19/2023 9:59 AM CDT Corey Joya MD LAB - URINE SOHAIL SWIFT [facility] LAB[facility]ORY [facility] [place] [facility] Lab [address] [facility], [address] [address], [facility] [phone] * Hepatitis C Screen Reflex to HCV [...] SOHAIL SWIFT SPECIALTY CORE/PROT/ENDO Specialty Core/Prot/Endo 500 [facility], Room [address] [address] [phone] * (ABNORMAL) Lipid panel reflex to direct [...] LAB - BLOOD SOHAIL SWIFT [facility] LABORATORY [facility] Core Lab [address] [facility], [address] [place] [address], [facility] [phone] * (ABNORMAL) Comprehensive metabolic panel (BMP + Alb, Alk Phos, ALT, AST, Total. Bili, TP) (04/19/2023 9:47 AM CDT) [facility] Sodium 137 136 - 145 mmol/L 04/19/2023 [...] CDT Corey Joya MD LAB - BLOOD MARYJeri SWIFT U LABORATORY [facility] [place] Core Lab [address] [facility], Room [address] [place] [address], [facility] [phone] * HIV-1/HIV-2, SCREEN (07/12/2002 9:44 AM CDT) HIV 1&2 Antibody Negative NEG [facility] 07/12/2002 9:44 AM CDT 07/12/2002 10:32 AM CDT Emery Thakkar MD LABORATORY [facility] from Last 3 Months or Most Recently Relevant to Health Maintenance Care Teams Director Of Respiratory Therapy Relationship Specialty Start Date End Date No Ref-Primary, Physician PCP - General 03/16/23 Corey Joya MD [address] [place] [address] Assigned PCP 03/24/23
--- OUTSIDE RECORDS SUMMARY | 2024-06-26 14:54 | XMS_ITS | Clinical Summary ---
Author Organization [facility] Address [address] [facility] [place] [address] Care Team Providers Care Testing Consultant Name Role Phone Jose Wu Primary Care [...] for each transition of care or referral. [facility] Social History Tobacco Use Types [...] 04/17/2021, 03/25/2021, 02/21/2021, Additional history exists Influenza (#1) 2024 DTaP/Tdap/Td (3 - Tdap) 01/25/2029 01/25/2019, [...] Recently Relevant to Health Maintenance Care Teams Testing Consultant Relationship Specialty Start Date End Date Jose Wu PCP - General 02/07/11
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
--- OUTSIDE RECORDS SUMMARY | 2024-06-26 14:55 | XMS_ITS | Encounter Summary ---
Author Organization [facility] Address [address] [place] [address] Care Team Providers Care Mortgage Professional Name Role Phone Doctor, Collins MONCADA Primary Care Provider Unavailabl e No Ref-Primary, Physician Primary Care Provider Corey Joya MD Unavailable [phone] Encounter Details Date Type Department Care Team (Late st Contact Info) Description 05/03/[address] [place] [address] Emery Thakkar MD Social History [...] on filedocumented in this encounter Care Teams Mortgage Professional Relationship Specialty Start Date End Date DoctorCollins MD PCP - General 12/23/01 07/08/17 No Ref-Primary, Physician PCP - General 03/16/23 Corey Joya MD [address] [place] [address] Assigned PCP 03/24/23 documented as of this encounter
== END 2024-06-26 07:38 | disposition home or self-care (01) ==
LOC: NFLDREF 14:53
PROVIDERS: PCP Family Medicine; Referring Provider Family Medicine; Visit Provider Family Medicine
DX: I10 Essential (primary) hypertension (principal); E78.5 Hyperlipidemia, unspecified; R74.8 Abnormal levels of other serum enzymes; E11.69 Type 2 diabetes mellitus with other specified complication
CPT/HCPCS: 80053; 80061; 82043; 82570

== ENCOUNTER 2024-07-06 15:17 | Outpatient (CLI) | payer BC, SELFPAY ==
--- OUTSIDE RECORDS SUMMARY | 2024-07-06 15:20 | XMS_ITS | Encounter Summary ---
Author Organization [facility] Address [address] [place] [address]. [place] [address] Care Team Providers Care Ambulance Attendant Name Role Phone No Ref-Primary, Physician Primary Care Provider Corey Joya MD Unavailable [phone] Reason for Visit * Reason Comments Medication Refill Encounter Details Date Type Department Care Team (Late st Contact Info) Description 12/21/[address] [place] [phone] Corey Joya MD [address] [place] [address] Medication Refill Social History Tobacco [...] patient of message below andassist in scheduling. MANAGEMENT SUPERVISOR * Telephone Encounter - Corey Joya MD - 12/22/2023 5:32 AM FARM MANAGEMENT SUPERVISOR Needs follow-up hemoglobin A1c. Lab orders placed. MANAGEMENT SUPERVISOR documented in this encounter Plan of Treatment Not on file documented as of this encounter Visit Diagnoses Diagnosis Type 2 diabetes mellitus without complication, without long-term current use of insulin (H) documented in this encounter Additional Health Concerns Assessment Noted Time PHQ-9 Depression Total Score: 21 023 9:09 AM CDT documented as of this encounter Care Teams Ambulance Attendant Relationship Specialty Start Date End Date No Ref-Primary, Physician PCP - General 03/16/23 Corey Joya MD [address] [place] [address] Assigned PCP 03/24/23 documented as of this encounter
--- OUTSIDE RECORDS SUMMARY | 2024-07-06 15:20 | XMS_ITS | Clinical Summary ---
Author Organization [facility] Address [address] [place] [address] Care Team Providers Care Art Librarian Name Role Phone No Ref-Primary, Physician Primary Care Provider Corey Joya MD Unavailable [phone] Allergies Active Allergy Reactions Criticality Noted Date [...] Comments HEMOGLOBIN A1C Routine 12/28/2023 10:55 AM EXPERIMENTAL WELDER Type 2 diabetes mellitus without complication, without [...] * (ABNORMAL) Hemoglobin A1c (12/28/2023 10:55 AM EXPERIMENTAL WELDER) Hemoglobin A1C 13.9(H) 0.0 - 5.6 % 12/28/2023 11:12 AM EXPERIMENTAL WELDER [facility] Comment: Normal <5.7% Prediabetes 5.7-6.4% ?? Diabetes 6.5% or higher Note: Adopted from ADA consensus guidelines. Blood BLOOD SPECIMEN / Unknown Venipuncture / Unknown 12/28/2023 10:55 AM EXPERIMENTAL WELDER 12/28/2023 10:55 AM EXPERIMENTAL WELDER Narrative [facility] - 12/28/2023 11:12 AM EXPERIMENTAL WELDER Reviewed, OK with previous. Corey Joya MD [facility] Organization Address City/State/ZIP Co de Phone Number RI LABORATORY [facility] [place] Lab [address] [facility], [address] [place] [address], [facility] [phone] * (ABNORMAL) Albumin Random Urine Quantitative with [...] control, and institution of therapy with an xyvgzmlpbfb-skmzyrytmn-ithhgd (VELVET) inhibitor (if the patient can tolerate it). ?? Urine URINE SPECIMEN / Unknown Non-blood Collection / Unknown 04/19/2023 9:59 AM CDT 04/19/2023 9:59 AM CDT Corey Joya MD LAB - URINE SOHAIL SWIFT [facility] [place] Core Lab [address] [facility], [address] [address], [facility] [phone] * Hepatitis C Screen Reflex to HCV RNA Quant and Genotype (04/19/2023 9:47 AM CDT) Pathologist [facility] Hepatitis C Antibody Nonreactive Nonreactive 04/20/2023 8:51 AM CDT SPECIALTY CORE/PROT/EN DO Blood STRUCTURE OF RIGHT UPPER LIMB / Unknown Venipuncture / Unknown 04/19/2023 9:47 AM CDT 04/19/2023 9:47 AM CDT Narrative SPECIALTY CORE/PROT/ENDO - 04/20/2023 8:51 AM CDT Assay performance characteristics have not been established for newborns, infants, and children. Corey Joya MD LAB - BLOOD MARYE JAMISON SPECIALTY CORE/PROT/ENDO Specialty Core/Prot/Endo 500 [facility], [address] [address] [phone] * (ABNORMAL) Lipid panel reflex to direct [...] LAB - BLOOD SOHAIL SWIFT [facility] LAB[facility]ORY [facility] [place] Core Lab [address] [facility], [address] [place] [address], [facility] [phone] * (ABNORMAL) Comprehensive metabolic panel (BMP + Alb, Alk Phos, ALT, AST, Total. Bili, TP) (04/19/2023 9:47 AM CDT) Pathologist [facility] Sodium 137 136 - 145 mmol/L 04/19/2023 [...] Joya MD LAB - BLOOD SOHAIL SWIFT LABORATORY [facility] [place] Core Lab [address] [facility] [address] Building, [address] [place] [address], [facility] [phone] * HIV-1/HIV-2, SCREEN (07/12/2002 9:44 AM CDT) HIV 1&2 Antibody Negative NEG [facility] 07/12/2002 9:44 AM CDT 07/12/2002 10:32 AM CDT Emery Thakkar MD LABORATORY [facility] from Last 3 Months or Most Recently Relevant to Health Maintenance Care Teams Art Librarian Relationship Specialty Start Date End Date No Ref-Primary, Physician PCP - General 03/16/23 Corey Joya MD [address] [place] [address] Assigned PCP 03/24/23
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
--- OUTSIDE RECORDS SUMMARY | 2024-07-06 15:20 | XMS_ITS | Encounter Summary ---
Author Organization [facility] Address [address] [place] [address] Care Team Providers Care Bagging Salvager Name Role Phone Doctor, Collins MONCADA Primary Care Provider Unavailabl e No Ref-Primary, Physician Primary Care Provider Corey Joya MD Unavailable Encounter Details Date Type Department Care Team (Late st Contact Info) Description 05/03/[address] [place] [address] Emery Thakkar MD Social History [...] on filedocumented in this encounter Care Teams Bagging Salvager Relationship Specialty Start Date End Date DoctorCollins MD PCP - General 12/23/01 07/08/17 No Ref-Primary, Physician PCP - General 03/16/23 Corey Joya MD [address] [place] [address] Assigned PCP 03/24/23 documented as of this encounter
--- OUTSIDE RECORDS SUMMARY | 2024-07-06 15:20 | XMS_ITS | Clinical Summary ---
Author Organization [facility] Address [address] [facility] [place] [address] Care Team Providers Care Stewarding Supervisor Name Role Phone Jose Wu Primary Care [...] for each transition of care or referral. [facility] Social History Tobacco Use Types [...] Recently Relevant to Health Maintenance Care Teams Stewarding Supervisor Relationship Specialty Start Date End Date Jose Wu PCP - General 02/07/11
--- OUTSIDE RECORDS SUMMARY | 2024-07-06 15:20 | XMS_ITS | Referral Summary ---
Author Organization [facility] Address [address] [place] [address] Care Team Providers Care Yarn Mercerizer Operator Helper Name Role Phone No Ref-Primary, Physician Primary Care Provider Corey Joya MD Unavailable [phone] Allergies Active Allergy Reactions Criticality Noted Date [...] Comments HEMOGLOBIN A1C Routine 12/28/2023 10:55 AM CHEMICAL MACHINE TENDER Type 2 diabetes mellitus without complication, without [...] * (ABNORMAL) Hemoglobin A1c (12/28/2023 10:55 AM CHEMICAL MACHINE TENDER) Hemoglobin A1C 13.9(H) 0.0 - 5.6 % 12/28/2023 11:12 AM CHEMICAL MACHINE TENDER [facility] Comment: Normal <5.7% Prediabetes 5.7-6.4% ?? Diabetes 6.5% or higher Note: Adopted from ADA consensus guidelines. Blood BLOOD SPECIMEN / Unknown Venipuncture / Unknown 12/28/2023 10:55 AM CHEMICAL MACHINE TENDER 12/28/2023 10:55 AM CHEMICAL MACHINE TENDER Narrative [facility] - 12/28/2023 11:12 AM CHEMICAL MACHINE TENDER Reviewed, OK with previous. Corey Joya MD LAB - BLOOD SOHAIL SWIFT RI LABORATORY [facility] [place] [facility] [address], [address] [place] [address], [facility] [phone] * (ABNORMAL) Albumin Random Urine Quantitative with [...] control, and institution of therapy with an gklxyxgpwhc-lggupmwjgi-ugffti (VELVET) inhibitor (if the patient can tolerate it). ?? Urine URINE SPECIMEN / Unknown Non-blood Collection / Unknown 04/19/2023 9:59 AM CDT 04/19/2023 9:59 AM CDT Corey Joya MD LAB - URINE SOHAIL SWIFT [facility] LABORATORY [facility] [place] [facility] [address] [facility], [address] [address], [facility] [phone] * Hepatitis C Screen Reflex to HCV [...] SOHAIL SWIFT SPECIALTY CORE/PROT/ENDO Specialty Core/Prot/Endo 500 [facility], [address] [address] [phone] * (ABNORMAL) Lipid panel reflex to direct [...] LAB - BLOOD SOHAIL SWIFT UU LABORATORY [facility] Core Lab [address] [facility], [address] [place] [address], [facility] [phone] * (ABNORMAL) Comprehensive metabolic panel (BMP + Alb, Alk Phos, ALT, AST, Total. Bili, TP) (04/19/2023 9:47 AM CDT) [facility] Sodium 137 136 - 145 mmol/L 04/19/2023 [...] LAB - BLOOD MARYJeri SWIFT U LABORATORY [facility] [place] [facility] [address] [facility], [address] [place] [address], [facility] [phone] * HIV-1/HIV-2, SCREEN (07/12/2002 9:44 AM CDT) HIV 1&2 Antibody Negative NEG [facility] 07/12/2002 9:44 AM CDT 07/12/2002 10:32 AM CDT Emery Thakkar MD LABORATORY [facility] from Last 3 Months or Most Recently Relevant to Health Maintenance Care Teams Yarn Mercerizer Operator Helper Relationship Specialty Start Date End Date No Ref-Primary, Physician PCP - General 03/16/23 Corey Joya MD [address] [place] [address] Assigned PCP 03/24/23
--- NOTE | 2024-07-06 15:30 | CRLHL7_ITS ---
For Patients: As a result of the Century Cures Act, medical imaging exams and procedure reports are released immediately into your electronic medical record. You may view this report before your referring provider. If you have questions, please contact your health care provider. INDICATION: Liver disease TECHNIQUE: Multiplanar imaging of the abdomen was performed without and with 20 cc of Dotarem contrast material IV. COMPARISON: Chest CT performed today FINDINGS: Fatty change is demonstrated in the liver. The liver is normal in size and shape. A typical hemangioma measuring up to 2.7 cm in diameter is demonstrated in segment 4A. The bile ducts are normal in caliber. The spleen, adrenal glands and pancreas are within normal limits. A 5.3 cm right parenchymal cyst is noted. The kidneys are otherwise no lymphadenopathy is apparent. No intrinsic bowel abnormality is evident. No free fluid is demonstrated. IMPRESSION: 1. Fatty liver and typical 2.7 cm segment 4A hemangioma. 2. 5.3 cm right renal parenchymal cyst Dictated by Augustin Nguyen MD @ 07/11/2024 5:42:06 AM (Electronically Signed)
--- NOTE | 2024-07-06 16:45 | CRLHL7_ITS ---
For Patients: As a result of the Century Cures Act, medical imaging exams and procedure reports are released immediately into your electronic medical record. You may view this report before your referring provider. If you have questions, please contact your health care provider. INDICATION: FOLLOW UP PNEUMONIA, POSSIBLE PE, ABNORMAL CT COMPARISON: 03/09/2024 TECHNIQUE: CT volumetric acquisition was performed of the thorax during intravenous infusion of 95 cc of Isovue 370 nonionic intravenous contrast. Please note that all CT scans at this facility use dose modulation, iterative reconstruction, and/or weight-based dosing when appropriate to reduce radiation dose to as low as reasonably achievable. FINDINGS: Bronchial wall thickening noted in both lower lobes. Patchy areas of scarring are present bilaterally. No pleural effusion or pulmonary edema. No mediastinal, hilar or axillary adenopathy. No pulmonary embolism in the main, lobar or segmental pulmonary arteries. No vertebral body compression fracture. Calcified granuloma within the left upper lobe. IMPRESSION: No evidence of pulmonary thromboembolism. COPD/chronic bronchitis. Paraseptal emphysema. No suspicious pulmonary nodule. Resolution of previously noted left upper lobe infiltrate. Please note that all CT scans at this facility use dose modulation, iterative reconstruction, and/or weight-based dosing when appropriate to reduce radiation dose to as low as reasonably achievable. Dictated by Fredi Geiger MD @ 07/07/2024 1:21:08 PM (Electronically Signed)
== END 2024-07-06 15:18 | disposition home or self-care (01) ==
PROVIDERS: PCP Family Medicine; Visit Provider Family Medicine
DX: K76.9 Liver disease, unspecified (principal); K76.0 Fatty (change of) liver, not elsewhere classified; N28.1 Cyst of kidney, acquired; J18.9 Pneumonia, unspecified organism; J44.9 Chronic obstructive pulmonary disease, unspecified; I26.99 Other pulmonary embolism without acute cor pulmonale; Z72.0 Tobacco use
CPT/HCPCS: 71275; 74183; A9575; Q9967

== ENCOUNTER 2024-09-25 15:28 | Outpatient (CLI) | payer OTHER, SELFPAY ==
--- OUTSIDE RECORDS SUMMARY | 2024-09-29 21:14 | XMS_ITS | Clinical Summary ---
Author Organization [facility] Address [address] [facility] [place] [address] Care Team Providers Care Senior Attorney Name Role Phone Jose Wu Primary Care [...] for each transition of care or referral. [facility] Social History Tobacco Use Types Packs/Day Years [...] of 2) 2015 COVID-19 Vaccine ( season) 2024 04/17/2021, 03/25/2021, 02/21/2021, Additional history exists Influenza (#1) 2024 DTaP/Tdap/Td (3 - Tdap) 01/25/2029 01/25/2019, 05/19 HepA Aged Out No longer eligi ble based on patient's age to complete this topic Hib Aged Out No longer eligi ble based on patient's age to complete this topic IPV (Polio) Aged Out No longer eligi ble based on patient's age to complete this topic RSV Aged Out No longer eligi ble based [...] Recently Relevant to Health Maintenance Care Teams Senior Attorney Relationship Specialty Start Date End Date Jose Wu PCP - General 02/07/11
--- OUTSIDE RECORDS SUMMARY | 2024-09-29 21:14 | XMS_ITS | Clinical Summary ---
Author Organization [facility] Address [address] [place] [address] Care Team Providers Care Burglar Alarm Mechanic Name Role Phone No Ref-Primary, Physician Primary Care Provider Corey Joya MD Unavailable [phone] Allergies Active Allergy Reactions Criticality Noted Date Comments No Known Drug Allergy 05/03/2002 Medications rosuvastatin (CRESTOR) 40 MG tabletIndications :Hyperlipidemia LDL goal <70 Take 1 tablet (40 mg) by mouth daily at 2 pm 90 tablet 3 3 Active metoprolol tartrate (LOPRESSOR) 50 MG tabletIndications :Benign essential hypertension Take 1 tablet (50 mg) by mouth 2 times daily 180 tablet 3 3 Active metFORMIN (GLUCOPHAGE) 500 MG tabletIndications :Type 2 diabetes mellitus without complication, without long-term current use of insulin (H) Take 2 tablets (1,000 mg) by mouth 2 times daily (with meals) 360 tablet 3 Active Active Problems Problem Noted Date Diagnosed [...] Recorded Sex Assigned at Not on file Legal Sex Male 3:13 AM PHARMACEUTICAL DETAILER Gender Identity Not on file Sexual Orientation Not on file Last Filed Vital Signs Vital Sign Reading Time Taken Comments Blood Pressure 138/100 04/19/2023 9:18 AM CDT Pulse 102 04/19/2023 9:18 AM CDT Temperature 36.8 C (98.2 F) 04/19/2023 9:18 AM CDT Respiratory Rate 20 04/19/2023 9:18 AM CDT [...] 2015 ZOSTER IMMUNIZATION (1 of 2) 2015 PHQ-2 (once per calendar year) 2023 04/19/2023, 04/19/2023 A1C 03/27/2024 12/28/2023, 08/08, 04/19/2023 ANNUAL REVIEW OF HM ORDERS 04/19/2024 04/19/2023 BMP 04/19/2024 04/19/2023, 11/29/2002 DIABETIC FOOT EXAM 04/19/2024 04/19/2023, 04/19/2023 LIPID 04/19/2024 04/19/2023, 11/09, 07/12/2002, Additional history exists MICROALBUMIN 04/19/2024 04/19/2023 YEARLY PREVENTIVE VISIT 04/19/2024 04/19/2023 COVID-19 Vaccine ( season) 2024 04/17/2021, 03/25/2021, 02/21/2021, Additional history exists INFLUENZA VACCINE (#1) 2024 ADVANCE CARE PLANNING 04/19/2028 04/19/2023 DTAP/TDAP/TD IMMUNIZATION (3 - Td or Tdap) 01/25/2029 01/25/2019, 05/19/2016 RSV VACCINE (1 - 1-dose 75+ series) 2040 HIV SCREENING Completed 07/12/2002 HEPATITIS C SCREENING [...] Comments HEMOGLOBIN A1C Routine 12/28/2023 10:55 AM PHARMACEUTICAL DETAILER Type 2 diabetes mellitus without complication, without [...] * (ABNORMAL) Hemoglobin A1c (12/28/2023 10:55 AM PHARMACEUTICAL DETAILER) Hemoglobin A1C 13.9(H) 0.0 - 5.6 % 12/28/2023 11:12 AM PHARMACEUTICAL DETAILER [facility] Comment: Normal <5.7% Prediabetes 5.7-6.4% Diabetes 6.5% or higher Note: Adopted from ADA consensus guidelines. Blood BLOOD SPECIMEN / Unknown Venipuncture / Unknown 12/28/2023 10:55 AM PHARMACEUTICAL DETAILER 12/28/2023 10:55 AM PHARMACEUTICAL DETAILER Narrative [facility] - 12/28/2023 11:12 AM PHARMACEUTICAL DETAILER Reviewed, OK with previous. us Corey Joya MD LAB - BLOOD ORDERABLES F inal Result [place] LABORATORY [facility] [place] Lab [address], [address] [place] [address], [facility] [phone] * (ABNORMAL) Albumin Random Urine Quantitative with [...] control, and institution of therapy with an zuxpdvgnrwz-pmqxkklxrm-yjimgw (VELVET) inhibitor (if the patient can tolerate it). Urine URINE SPECIMEN / Unknown Non-blood Collection / Unknown 04/19/2023 9:59 AM CDT 04/19/2023 9:59 AM CDT Corey Joya MD LAB - URINE ORDERABLES F inal Result LABORATORY [facility] [place] [facility] 500 [facility], [address] [address], [facility] [phone] * Hepatitis C Screen Reflex to HCV [...] been established for newborns, infants, and children. us Corey Joya MD LAB - BLOOD ORDERABLES F inal Result SPECIALTY CORE/PROT/ENDO Specialty Core/Prot/Endo 500 [facility], [address] [address] [phone] * (ABNORMAL) Lipid panel reflex to direct [...] - 04/19/2023 8:37 PM CDT Cholesterol Desirable: <200 mg/dL Triglycerides Normal: Less than 150 mg/dL Borderline High: 150-199 mg/dL High: 200-499 mg/dL Very High: Greater than or equal to 500 mg/dL Direct Measure HDL Female: Greater than or equal to 50 mg/dL Male: Greater than or equal to 40 mg/dL LDL Cholesterol Desirable: <100mg/dL Above Desirable: 100-129 mg/dL Borderline High: 130-159 mg/dL High: 160-189 mg/dL Very High: >= 190 mg/dL Non HDL Cholesterol Desirable: 130 mg/dL Above Desirable: 130-159 mg/dL Borderline High: 160-189 mg/dL High: 190-219 mg/dL Very High: Greater than or equal to 220 mg/dL us Corey Joya MD LAB - BLOOD ORDERABLES F inal Result U LABORATORY [facility] [place] [facility] 500 [facility], [address] [place] [address], [facility] [phone] * (ABNORMAL) Comprehensive metabolic panel (BMP + Alb, Alk Phos, ALT, AST, Total. Bili, TP) (04/19/2023 9:47 AM CDT) Pathologist [facility] Sodium 137 136 - 145 mmol/L 04/19/2023 [...] 8:37 PM CDT [facility] LABORATORY Comment:eGFR calculated us2020 CKD-EPI equation. Blood STRUCTURE OF RIGHT UPPER LIMB / Unknown Venipuncture / Unknown 04/19/2023 9:47 AM CDT 04/19/2023 9:47 AM CDT us Corey Joya MD LAB - BLOOD ORDERABLES F inal Result UU LABORATORY [facility] [place] [facility] 500 [facility] [address], [address] [address], [facility] [phone] * HIV-1/HIV-2, SCREEN (07/12/2002 9:44 AM CDT) HIV 1&2 Antibody Negative NEG [facility] 07/12/2002 9:44 AM CDT 07/12/2002 10:32 AM CDT us Emery Thakkar MD LABORATORY Final Resul t Performing Organization Address City/[facility]/ZIP Co de Phone Number [facility] [address] [place] [address] from Last 3 Months or Most Recently Relevant to Health Maintenance Insurance [facility] Care Teams Burglar Alarm Mechanic Relationship Specialty Start Date End Date No Ref-Primary, Physician PCP - General 03/16/23 Corey Joya MD [address] [place] [address] Assigned PCP 03/24/23
--- OUTSIDE RECORDS SUMMARY | 2024-09-29 21:14 | XMS_ITS | Encounter Summary ---
Author Organization [facility] Address [address] [place] [address] Care Team Providers Care Asbestos Cement Sheet Supervisor Name Role Phone DoctorCollins MD Primary Care Provider Unavailabl e No Ref-Primary, Physician Primary Care Provider Corey Joya MD Unavailable Encounter Details Date Type Department Care Team (Late st Contact Info) Description 05/03/[address] [place] [phone] Emery Thakkar MD Social History Tobacco Use Types Packs/Day Years Used Date Smoking Tobacco: Never Assessed Sex and Gender Information Value Date Recorded Sex Assigned at Not on file 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
--- OUTSIDE RECORDS SUMMARY | 2024-09-29 21:14 | XMS_ITS | Referral Summary ---
Author Organization [facility] Address [address] [place] [address] Care Team Providers Care Music Publisher Name Role Phone No Ref-Primary, Physician Primary Care Provider Corey Joya MD Unavailable [phone] Allergies Active Allergy Reactions Criticality Noted Date [...] on file Legal Sex Male 3:13 AM SENIOR PROCUREMENT SPECIALIST Gender Identity Not on file Sexual Orientation [...] Comments HEMOGLOBIN A1C Routine 12/28/2023 10:55 AM SENIOR PROCUREMENT SPECIALIST Type 2 diabetes mellitus without complication, [...] * (ABNORMAL) Hemoglobin A1c (12/28/2023 10:55 AM SENIOR PROCUREMENT SPECIALIST) Hemoglobin A1C 13.9(H) 0.0 - 5.6 % 12/28/2023 11:12 AM SENIOR PROCUREMENT SPECIALIST [facility] Comment: Normal <5.7% Prediabetes 5.7-6.4% Diabetes 6.5% or higher Note: Adopted from ADA consensus guidelines. Blood BLOOD SPECIMEN / Unknown Venipuncture / Unknown 12/28/2023 10:55 AM SENIOR PROCUREMENT SPECIALIST 12/28/2023 10:55 AM SENIOR PROCUREMENT SPECIALIST Narrative [facility] - 12/28/2023 11:12 AM SENIOR PROCUREMENT SPECIALIST Reviewed, OK with previous. Corey Joya MD LAB - BLOOD ORDERABLES F inal Result RI LABORATORY [facility] [place] [facility] [address] [facility], [address] [place] [address], [facility] [phone] * (ABNORMAL) Albumin Random Urine Quantitative with [...] control, and institution of therapy with an omxodaeutjl-mgfqmtwcht-zwwken (VELVET) inhibitor (if the patient can tolerate it). Urine URINE SPECIMEN / Unknown Non-blood Collection / Unknown 04/19/2023 9:59 AM CDT 04/19/2023 9:59 AM CDT Corey Joya MD LAB - URINE ORDERABLES F inal Result UU LABORATORY [facility] [place] [facility] [address] [place] [address], [address] [address], [facility] [phone] * Hepatitis C Screen Reflex to HCV [...] children. Corey Joya MD LAB - BLOOD ORDERABLES F inal Result SPECIALTY CORE/PROT/ENDO Specialty Core/Prot/Endo 500 [facility], [address] [address] [phone] * (ABNORMAL) Lipid panel reflex to direct [...] BLOOD ORDERABLES F inal Result U LABORATORY [facility] [place] [facility] 500 [facility], [address] [place] [address], [facility] [phone] * (ABNORMAL) Comprehensive metabolic panel (BMP + [...] BLOOD ORDERABLES F inal Result UU LABORATORY [facility] [place] [facility] 500 [facility], [address] [address], [facility] [phone] * HIV-1/HIV-2, SCREEN (07/12/2002 9:44 AM CDT) HIV 1&2 Antibody Negative NEG [facility] 07/12/2002 9:44 AM CDT 07/12/2002 10:32 AM CDT us Emery Thakkar MD LABORATORY Final Resul t [facility] [address] [place] [address] from Last 3 Months or Most Recently Relevant to Health Maintenance Insurance [facility] Care Teams Music Publisher Relationship Specialty Start Date End Date No Ref-Primary, Physician PCP - General 03/16/23 Corey Joya MD [address] [place] [address] Assigned PCP 03/24/23
--- OUTSIDE RECORDS SUMMARY | 2024-09-29 21:14 | XMS_ITS | Encounter Summary ---
Author Organization [facility] Address [address] [place] [address]. [place] [address] Care Team Providers Care Operations And Maintenance Supervisor Name Role Phone No Ref-Primary, Physician Primary Care Provider Corey Joya MD Unavailable [phone] Reason for Visit * Reason Comments Medication Refill Encounter Details Date Type Department Care Team (Late st Contact Info) Description 12/21/[address] [place] [phone] Corey Joya MD [address] [place] [address] Medication Refill Social History Tobacco [...] on file Legal Sex Male 3:13 AM APPEALS COORDINATOR Gender Identity Not on file Sexual Orientation Not on file documented as of this encounter Miscellaneous Notes * Telephone Encounter - Lizzy Acuna RN - 12/22/2023 8:40 AM CST Left a voicemail asking patient to call the clinic back. Please advise patient of message below andassist in scheduling. ALS COORDINATOR * Telephone Encounter - Corey Joya MD - 12/22/2023 5:32 AM APPEALS COORDINATOR Needs follow-up hemoglobin A1c. Lab orders placed. ALS COORDINATOR documented in this encounter Plan of Treatment Not on file documented as of this encounter Visit Diagnoses Diagnosis Type 2 diabetes mellitus without complication, without long-term current use of insulin (H) documented in this encounter Additional Health Concerns Assessment Noted Time PHQ-9 Depression Total Score: 21 023 9:09 AM CDT documented as of this encounter Care Teams Operations And Maintenance Supervisor Relationship Specialty Start Date End Date No Ref-Primary, Physician PCP - General 03/16/23 Corey Joya MD [address] [place] [address] Assigned PCP 03/24/23 documented as of this encounter
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
== END 2024-09-25 15:29 | disposition home or self-care (01) ==
LOC: NFLDREF 09-29 21:13
PROVIDERS: PCP Family Medicine; Referring Provider Family Medicine; Visit Provider Family Medicine
DX: E78.5 Hyperlipidemia, unspecified (principal); I10 Essential (primary) hypertension; E11.65 Type 2 diabetes mellitus with hyperglycemia
CPT/HCPCS: 80053; 80061

== ENCOUNTER 2025-08-30 10:05 | Outpatient (CLI) | payer OTHER, SELFPAY | END 2025-08-30 10:06 | disposition home or self-care (01) | LOC: NFLDREF 09-01 18:24 | PROVIDERS: PCP Family Medicine; Referring Provider Family Medicine; Visit Provider Family Medicine | DX: E78.5 Hyperlipidemia, unspecified (principal); E11.65 Type 2 diabetes mellitus with hyperglycemia; Z79.4 Long term (current) use of insulin; I10 Essential (primary) hypertension | CPT/HCPCS: 80053; 80061; 82043; 82570 ==